=== PATIENT | female | born 1940 | race Caucasian/White ===

== ENCOUNTER 2019-12-14 14:02 | Inpatient (IN) | payer MEDICARE, OTHER, SELFPAY ==
[2019-12-14 14:28] VITALS: BP 129/77; PULSE 63; RESP 16; TEMP 36.3; O2SAT 96; BMI 20.4
[2019-12-14 16:28] VITALS: BMI 20.4
[2019-12-14 19:01] VITALS: RESP 16; O2SAT 99
[2019-12-14 20:37] VITALS: BP 136/64; PULSE 68; RESP 18; TEMP 36.9; O2SAT 100
[2019-12-14] MEDS: Senna/Docusate Sodium 1 Tablet 2 TABLET PO (20:44)
[2019-12-14] MEDS: APIXABAN 2.5 MG TABLET PO (20:44)
[2019-12-14] MEDS: oxyCODONE 5 MG Tablet 2.5 MG PO (20:44)
[2019-12-14] MEDS: Magnesium Hydroxide 30 ML UDC PO (21:57)
[2019-12-15] MEDS: oxyCODONE 5 MG Tablet 2.5 MG PO ×4 (02:03→17:57)
[2019-12-15 05:38] LABS: Absolute Lymphocyte Count 1.46 X10^3/uL (0.83-4.51); Absolute Neutrophil Count 5.1 X10^3/uL (2.0-7.7); Basophil# 0.02 X10^3/uL; Basophil% 0.3 % (0-1); Eosinophil# 0.14 X10^3/uL; Eosinophils% 1.9 % (0-5); Hematocrit 30.4 % (37-47); Hemoglobin 9.8 g/dL (12.0-15.0); Lymphocyte # 1.46 X10^3/ul (4.0); Lymphocyte % 19.6 % (19-41); Mean Corp Hgb Conc 32.2 g/dL (32-36); Mean Corpuscular Volume 99.3 fL (81-99); Mean Platelet Vol. 9.9 fl (6.2-12.0); Monocyte# 0.73 X10^3/uL; Monocyte% 9.8 % (0-10); NRBC Flagged by Analyzer 0 % (0-5); Neutrophil # 5.08 X10^3/uL (2.7-7.7); Platelet Count 193 K/mm3 (150-450); RBC Distribution Width CV 13.1 % (11.6-14.6); RBC Distribution Width SD 47.6 fl (35.1-43.9); Red Blood Count 3.06 M/mm3 (4.2-5.4); White Blood Count 7.5 K/mm3 (4.4-11.0)
[2019-12-15] MEDS: Levothyroxine 100 MCG Tablet PO (06:00)
[2019-12-15 06:03] LABS: ALB/GLOB Ratio 0.9 RATIO (0.9-2.4); AST(SGOT) 17 U/L (15-37); Alanine Aminotransfer ALT/SGPT 13 U/L (13-56); Alkaline Phosphatase 52 U/L (45-117); Anion Gap 7 (5-15); BUN 26 mg/dL (7-18); BUN/Creat Ratio 27.1 RATIO (10-20); Calcium,Total 8.7 mg/dL (8.5-10.1); Chloride 109 mmol/L (98-107); Creatinine, Serum 0.96 mg/dL (0.55-1.02); EST Glomerular Filtration Rate 59 mL/min (>60); Est Glom Filt Rate - Afr Amer 72 mL/min (>60); Estimated Creatinine Clearance 34.68 ml/min; Globulin 3.3 g/dL (2.2-4.2); Glucose 100 mg/dL (74-106); Magnesium 1.6 mg/dL (1.6-2.6); Phosphorus 2.6 mg/dL (2.5-4.9); Potassium 3.7 mmol/L (3.5-5.1); Protein, Total 6.3 g/dL (6.4-8.2); Sodium Level 144 mmol/L (136-145)
[2019-12-15] MEDS: Acetaminophen 325 MG Tablet 650 MG PO ×2 (06:30→14:37)
[2019-12-15 06:50] LABS: PTHIN 58.4 pg/mL (18.4-80.1)
[2019-12-15 07:02] VITALS: O2SAT 98
[2019-12-15 07:28] VITALS: BP 133/58; PULSE 71; RESP 12; TEMP 36.7; O2SAT 97
[2019-12-15 10:35] VITALS: PULSE 70
[2019-12-15] MEDS: Pantoprazole Sodium 40 MG Tablet PO (10:35)
[2019-12-15] MEDS: Metoprolol(XL)Succ 25 MG Tablet 12.5 MG PO (10:35)
[2019-12-15] MEDS: Lidocaine 5% Patch 1 PATCH TOPICAL (10:37)
[2019-12-15] MEDS: Senna/Docusate Sodium 1 Tablet 2 TABLET PO ×2 (10:39→20:36)
[2019-12-15] MEDS: APIXABAN 2.5 MG TABLET PO ×2 (10:40→20:36)
--- NOTE | 2019-12-15 11:34 | PCM.HP.STD ---
Problem List (1) Closed pelvic fracture Status: Acute Qualifiers: Encounter type: subsequent encounter Comment: Left pubic rami due to a fall (2) Closed left clavicular fracture Status: Acute Qualifiers: Encounter type: subsequent encounter Comment: due to a fall (3) Abdominal bruit Status: Chronic (4) Paroxysmal atrial fibrillation Status: Chronic (5) Chronic anticoagulation Status: Chronic Comment: On apixaban (6) History of right breast cancer Status: Chronic Comment: She had a right radical mastectomy in 1974 (7) Status post right mastectomy Status: Chronic Comment: 1974 (8) Diverticulosis Status: Chronic (9) History of endometrial cancer Status: Chronic (10) History of hysterectomy for cancer Status: Acute Comment: Hysterectomy in 2005 (11) Gastritis Status: Chronic (12) Hyperlipidemia Status: Chronic (13) Hypothyroidism Status: Chronic (14) Hepatic cyst Status: Chronic (15) Chronic low back pain Status: Chronic (16) Mitral regurgitation Status: Chronic Qualifiers: Cardiac valve disease etiology: nonrheumatic Qualified Code(s): I34.0 - Nonrheumatic mitral (valve) insufficiency (17) Overactive bladder Status: Chronic (18) GERD with esophagitis Status: Chronic (19) B12 deficiency Status: Acute (20) Vitamin D deficiency Status: Chronic (21) Disturbance of memory Status: Chronic Comment: over the past year (2019) (22) Macrocytic anemia Status: Acute History of Present Illness Date of Admission: 12/14/19 Chief Complaint: Debility secondary to recent traumatic left clavicle and left pubic rami fractures Shanthi Roy is a 79 year old F with a past medical history of hypertension, hypothyroidism, paroxysmal atrial fibrillation, diverticulosis, remote breast cancer with mastectomy in 1974, endometrial cancer with hysterectomy in 2005, gastritis, hyperlipidemia, hepatic cyst, chronic low back pain, mitral regurgitation, GERD with esophagitis, overactive bladder, B12 deficiency, vitamin D deficiency, abdominal bruit and recent fracture of the left clavicle and left superior and inferior pubic rami secondary to a fall from a wall she was trying to sit on who was admitted to the IPRU at [facility] on 12/14/19 with debility due to recent fractures for 3 hours of therapy daily to restore her to her prior level of independence. Prior to the recent fall she was independent with ADL's, walking without an AD and driving. She lives alone and prepares her own meals. Her family has noticed that she has been getting more forgetful over the past year. Her about 1 year ago and he had dementia. She tells me that she took care of him at home and she misses him a lot. She also tells me that she is sleeping well and has been active. She is a golfer and she enjoys gardening. She does not recognize that she has any difficulty with her memory. She tells me that she is not depressed and she has her cats at home for company. She does not know if she has ever had a BMD test. Her PCP is Dr. Ang in [place] and she does not recall the doctor's first name. She is not on medication for osteoporosis. She does take a vitamin D supplement. Past Medical History Past Medical History (Chronic Problems): Chronic Problems (Last Reviewed 12/15/19 @ 12:[address] Pooja Alvarez DO) Abdominal bruit (Chronic) Paroxysmal atrial fibrillation (Chronic) Chronic anticoagulation (Chronic) On apixaban History of right breast cancer (Chronic) She had a right radical mastectomy in 1974 Status post right mastectomy (Chronic) 1974 Diverticulosis (Chronic) History of endometrial cancer (Chronic) Gastritis (Chronic) Hyperlipidemia (Chronic) Hypothyroidism (Chronic) Hepatic cyst (Chronic) Chronic low back pain (Chronic) Mitral regurgitation (Chronic) Overactive bladder (Chronic) GERD with esophagitis (Chronic) Vitamin D deficiency (Chronic) Disturbance of memory (Chronic) over the past year (2019) Medical History: Medical History (Last Reviewed 12/15/19 @ 12:[address] Pooja Alvarez DO) Cataract H26.9 Liver cyst K76.89 Low back pain M54.5 Mitral regurgitation I34.0 Osteoporosis M81.0 Overactive bladder N32.81 Plantar fasciitis M72.2 Reflux esophagitis K21.0 Stress F43.9 Vitamin B 12 deficiency E53.8 Vitamin D deficiency E55.9 Allergies ciprofloxacin Allergy (Unknown, Verified 12/14/19 15:23) Itching nitrofurantoin [From Macrobid] Allergy (Unknown, Verified 12/14/19 15:23) Itching sulfamethoxazole [From Bactrim] Allergy (Verified 12/14/19 15:23) Itching trimethoprim [From Bactrim] Allergy (Verified 12/14/19 15:23) Itching Home Medications: Ambulatory Orders Medication Instructions Recorded Apixaban [Eliquis] 2.5 mg PO BID 12/14/19 Cholecalciferol (VIT D3) [Vitamin 50,000 units PO QWEEK 12/14/19 D3] Diphenoxylate HCl/Atropine 1 tab PO DAILY 12/14/19 [Lomotil 2.5-0.025 mg Tablet] Levothyroxine [Synthroid] 100 mcg PO DAILY 12/14/19 Lidocaine 1 patch TRANSDERM. DAILY 12/14/19 Mecobalamin [B12 Active] 1,000 mcg PO QODAY 12/14/19 Metoprolol Succinate [Toprol Xl] 12.5 mg PO DAILY 12/14/19 Omeprazole 40 mg PO DAILY 12/14/19 Oxycodone [Oxyir] 0.5 tab PO Q4H PRN PRN 12/14/19 Potassium Chloride 10 meq PO DAILY 12/14/19 Surgical History: Surgical History (Last Reviewed 12/15/19 @ 12:[address] 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 Denies: Chills, Fever, Malaise, Weight Change Eyes: Denies: Blurred vision HEENT: Denies: Difficulty Swallowing, Hard of Hearing, Head Aches, Nasal Congestion, Sinus Congestion, Sinus Drainage, Sore Throat Cardiovascular: Denies: Chest Pain, Edema, Light Headedness, Palpitations, Syncope Respiratory: Denies: Cough, Hemoptysis, Pleuritic Pain, Shortness of Breath, Shortness of breath at rest, Sputum production Gastrointestinal: Reports: Constipation - since she has been in the hospital...more likely than not due to narcotics for pain control. Denies: Abdominal Pain, Diarrhea, Nausea, Vomiting Genitourinary: Denies: Dysuria Musculoskeletal: Denies: Joint Pain, Joint Tenderness Skin: Denies: Jaundice, Rash, Wounds Neurological: Reports: Confusion - not so much confusion but poor short term memory. Denies: Balance problems, Change in Speech, Slurred speech, Focal weakness, Numbness, Tingling, Tremor, Seizures Psychiatric: Denies: Anxiety, Depression, Homicidal Ideations, Suicidal Ideations Endocrine: Denies: Change in Body Habitus Hematologic/ Lymphatic: Denies: Easy Bruising, Easy Bleeding, Hx of blood clot VTE Information - Inpt Only VTE Present on Admission: No VTE Mechan Device Prophylaxis: Knee High AXEL Hose Reason prophylaxis not ordered:: Treatment Not Indicated - she is on full dose Apixaban for PAF Patient Problems: Active and Suspected Problems (Last Reviewed 12/15/19 @ 12:[address] Pooja Alvarez, DO) Closed pelvic fracture (Acute) Left pubic rami due to a fall Closed left clavicular fracture (Acute) due to a fall History of hysterectomy for cancer (Acute) Hysterectomy in 2005 B12 deficiency (Acute) Macrocytic anemia (Acute) - Physical Exam Vitals/I&O's: Vital Signs Temp Pulse Resp BP Pulse Ox 98.1 F 70 12 133/58 H 97 12/15/19 07:28 12/15/19 10:35 12/15/19 07:28 12/15/19 07:28 12/15/19 07:28 Oxygen Delivery Method Room Air Weight: 105 lb 6.095 oz Body Mass Index (BMI) 20.4 Intake and Output for Last 24 Hours 12/13/19 12/14/19 12/15/19 23:59 23:59 23:59 Intake Total 240 / 240 260 / 260 Output Total 200 / 200 300 / 300 Balance 40 / 40 -40 / -40 General: Alert, Oriented x3, Cooperative, No apparent distress, Well developed, - - She is forgetful....atiya with recent memory. She is sitting in the recliner and appears comfortable HEENT: Atraumatic, PERRLA, EOMI Oral: No Gingival or Mucosal Lesions/ Ulcerations, Dry Mucosa Neck: Supple, No JVD, Negative Carotid Bruits, Negative Hepatojugular Reflux, No Nodes, No Nuchal Rigidity, Trachea Midline, - - The carotids have brisk upstroke and excellent pulse volume with no bruits Lungs: Clear to auscultation, No rhonchi, No wheeze, No rales Cardiovascular: Regular rate, Regular Rhythm, Normal S1, Normal S2, No murmurs, No Ectopic Activity, No rub noted, No Gallop Abdomen: Bowel Sounds Present, Soft, Non Tender - except in the left groin, Non-Distended, No Hepato-splenomegaly, - - No guarding with palpation Extremities: No clubbing, No cyanosis, No edema, No Calf Tenderness, Peripheral Pulses Normal Skin: No rashes, No breakdown Musculoskeletal: No Muscle Wasting Neurological: Cranial nerves II-XII grossly intact, Motor Exam 5/5 strength throughout Psych/Mental Status: Normal Affect - she is very pleasant and easy to talk to., Appropriate Laboratory Results 12/15/19 05:25: WBC 7.5, RBC 3.06 L, Hgb 9.8 L, Hct 30.4 L, MCV 99.3 H, MCH 32.0, MCHC 32.2, RDW Std Deviation 47.6 H, RDW Coeff of Tati 13.1, Plt Count 193, MPV 9.9, Immature Gran % (Auto) 0.400, Neut % (Auto) 68.0, Lymph % (Auto) 19.6, Eagle % (Auto) 9.8, Eos % (Auto) 1.9, Baso % (Auto) 0.3, Absolute Neuts (auto) 5.1, Absolute Lymphs (auto) 1.46, Nucleated RBC % 0 12/15/19 05:25: Sodium 144, Potassium 3.7, Chloride 109 H, Carbon Dioxide 28.0, Anion Gap 7, BUN 26 H, Creatinine 0.96, Estim Creat Clear Calc 34.68, Est GFR (MDRD) Af Amer 72, Est GFR (MDRD) Non-Af 59 L, BUN/Creatinine Ratio 27.1 H, Glucose 100, Calcium 8.7, Phosphorus 2.6, Magnesium 1.6, Total Bilirubin 0.50, AST 17, ALT 13, Alkaline Phosphatase 52, Total Protein 6.3 L, Albumin 3.0 L, Globulin 3.3, Albumin/Globulin Ratio 0.9 12/15/19 05:25: PTH Intact 58.4 Current Medications Acetaminophen (Tylenol) 650 mg PO Q6H PRN PRN PRN Reason: Pain Score 1-1010 Last Admin: 12/15/19 06:30 Dose: 650 mg Documented by: Apixaban (Eliquis) 2.5 mg PO BID [facility] Last Admin: 12/15/19 10:40 Dose: 2.5 mg Documented by: Bisacodyl (Dulcolax) 10 mg RECTAL .PRN X 1 PRN PRN Reason: Constipation Ergocalciferol (Vitamin D) 50,000 unit PO QWEEK [facility] Stop: 03/24/20 08:01 Levothyroxine Sodium (Synthroid) 100 mcg PO DAILY@0600 [facility] Last Admin: 12/15/19 06:00 Dose: 100 mcg Documented by: Lidocaine (Lidoderm Patch) 1 patch TOPICAL DAILY [facility] Last Admin: 12/15/19 10:37 Dose: 1 patch Documented by: Magnesium Hydroxide (Milk Of Magnesia) 30 ml PO .PRN X 1 PRN PRN Reason: Constipation Last Admin: 12/14/19 21:57 Dose: 30 ml Documented by: Metoprolol Succinate (Toprol Xl (Beta Gabriella)) 12.5 mg PO DAILY [facility] Last Admin: 12/15/19 10:35 Dose: 12.5 mg Documented by: Oxycodone HCl (Oxyir) 2.5 mg PO Q4H PRN PRN PRN Reason: Pain 1-10 Last Admin: 12/15/19 06:31 Dose: 2.5 mg Documented by: Pantoprazole Sodium (Protonix) 40 mg PO DAILY [facility] Last Admin: 12/15/19 10:35 Dose: 40 mg Documented by: Potassium [facility]Dur[facility] Last Admin: 12/15/19 10:39 Dose: 10 meq Documented by: Senna/Docusate Sodium (Senokot-S, Marie-Colace) 2 tablet PO BID [facility] Last Admin: 12/15/19 10:39 Dose: 2 tablet Documented by: Assessment/Plan All Active Problems (Last Reviewed 12/15/19 @ 12:[address] Pooja Alvarez, DO) Closed pelvic fracture (Acute) Closed left clavicular fracture (Acute) History of hysterectomy for cancer (Acute) B12 deficiency (Acute) Macrocytic anemia (Acute) Impressions 1. Debility secondary to recent traumatic fracture of the left clavicle and left inferior and superior pubic rami after falling off a wall 2. Mild macrocytic anemia-acute versus chronic? 3. Paroxysmal atrial fibrillation 4. Chronic anticoagulation with apixaban 2.5 mg twice daily since she is greater than 78 years of age and weighs less than 60 kg. 5. Memory disturbance-etiology unclear at this time. Speech therapy will evaluate her for cognitive dysfunction. Depression must also be considered as etiology of her memory difficulty since her of 57 years approximately 1 year ago and she is living by herself. Will assess for depression. 6. Suspected osteoporosis-currently only on vitamin D supplementation Chronic medical problems including: Abdominal bruit/history of breast cancer status post radical mastectomy in 1974/history of endometrial cancer with hysterectomy in 2005/diverticulosis/gastritis/hyperlipidemia/hypothyroidism/hepatic cyst/chronic low back pain/nonrheumatic mitral regurgitation/overactive bladder/GERD with esophagitis/B12 deficiency/vitamin D deficiency-complicate care, management and prognosis. We will continue home medications. PLAN PT for gait stability -weightbearing as tolerated on the left lower extremity and nonweightbearing on the left upper extremity OT for ADL's ST for evaluation for short-term memory difficulties Analgesics as needed Bowel protocol Fall precautions Assess for Anxiety/Depression GI prophylaxis with pantoprazole DVT prophylaxis is unnecessary since the patient is fully anticoagulated with apixaban 2.5 mg p.o. twice daily for paroxysmal atrial fibrillation Follow up with Dr. Ang and orthopedics following DC from IP Rehab Start Miacalcin 1 spray per nostril daily for suspected osteoporosis and also to assist with acute pain from fracture Check a vitamin D level. PTH is within normal limits. Calcium is within normal limits. TSH was normal recently Check a B12 and Hemoccult stool. I suspect the anemia is due to recent blood loss from pelvic fractures. Obtain recent labs from her primary care physician and any report of a bone mineral density study She lost her approximately 1 year ago (they were 59 years) and the memory issues could be related to depression. I would rather treat for depression at this time and if no improvement refer her to neurology post DC to be evaluated for early dementia. Inpatient E&M: 57591 Init Hosp L3
--- NOTE | 2019-12-15 12:18 | PCM.RU.PYE ---
Admission Information Primary Diagnosis:: Debility secondary to recent traumatic left clavicle and left inferior and superior pubic rami fractures Status Changes from Prescreening?: No changes Identified Actual Problem List:: Falls, Pain, ALteration in Cmfrt, Cognitve Impr/Memory Loss - Short-term memory loss, Depression - Possibly. This could conceivably be the etiology of the short-term memory deficit. Patient's of almost 60 years last year., Bowel, Constipation, Mobility Impaired Potential Problem List:: DVT, Bleeding, Infection, UTI, Aspiration, Falls, Skin Integrity, Depression Risk of Complications DVT: AXEL Turner, - - The patient is on full dose apixaban for paroxysmal atrial fibrillation Bleeding: Monitor Lab Values, Nursing to Teach Precautions for anti-coagulation therapy., Wound, if applicable, to be assessed every shift., Stroke patients assessed for lethargy or change in status. Infection: Clinical Staff to Monitor for S/S of infection:, S/S of infection include fever, redness, warmth, etc. Urinary Tract Infection: Monitor for frequency, burning, discomfort, or incontinence., Nursing will obtain urine sample for urinalysis and C&S when ordered. Aspiration: Clinical staff will monitor for coughing, drooling, congestion., Speech will evaluate swallowing and dsyphasia., Nursing will monitor patient swallowing during meals. Falls: Patient will be evaluated for Fall Precautions, Patient will be placed on Fall Precautions as indicated per protocol. Skin Breakdown: Nursing will assess skin daily using assessment tool., Nursing will place on Skin Breakdown Precautions as indicated. Pain: Clinical staff will assess patient's pain level per protocol., Medications will be given, if needed, and the pain level reassessed., Other methods: Massage, distraction, decrease stimulus, etc. used PRN. Plan of Care Patient requires physician specializing in physical medicine and rehab oversight to provide close medical supervision of rehab issues including: Pain Management, Sleep Problems, Bowel and Bladder, Medical and co-morbidity Management, DVT prophylaxis, Rehabilitation Leadership, Coordination of treatment team Patient needs Physical Therapy: For a minimum of 1 hour, At least 5 out of 7 days Patient needs Physical Therapy to improve:: Mobility, Mobility, Mobility, Strengthening, Transfers, Stretching, ROM, Endurance, Stairs, Gait, Balance Patient needs Occupational Therapy: For a minimum of 1 hour, At least 5 out of 7 days Patient needs Occupational Therapy to improve ADL's incl.: Eating, Grooming, Bathing, Dressing, Toileting, Toilet transfers, Community Reintegration, Higher functioning activities, Household tasks, Adaptive Equipment, Splinting, Other activities as determined Patient requires speech therapy: For a minimum of 1 hour, At least 5 out of 7 days Patient requires speech therapy for: Swallowing, Cognition, Language Skills, Compensatory Strategies Patient requires 24/ Rehabilitation Nursing for: Pain Issues, Identifying and preventing risk factors, Monitoring and reporting current medical conditions, Assisting with ambulation, transfer, and all ADL's, Teaching patients about disease process and medications, Family teaching, Providing safe environment, Bowel and Bladder Issues, Skin integrity, Medication Management Patient needs Statistical Technician/ Case Management for: Discharge Planning, Arranging Home Equipment or Services, Family Interventions Patient needs Dietary and Nutrition Services for: Adequate Nutrition, Nutritional Supplements, Nutritional Education Goals Patient will remain: free from falls, or injury at time of discharge. Patient will perform bed mobility at: MOD I level of assist. Patient will complete transfers from bed to chair at: MOD I level of assist. Patient will ambulate: 100 feet, with MOD I assist, with LRD Patient will complete upper body dressing at: MOD I level of assist. Patient will complete lower body dressing at: MOD I level of assist. Patient will complete toileting at: MOD I level of assist. Patient will perform bathing at: MOD I level of assist. Patient will complete grooming at: MOD I level of assist. Patient will complete home management skills at: MOD I level of assist. Patient will achieve: 12 stairs, at MOD I assist Patient will have pain level of: of 3 or less Patient's skin will: remain intact, free from infection. Patient will receive: adequate nutrition. Discharge Planning Pt Prognosis for Sig. Practical Improv. w/in Reasonable Time: Good Estimated Length of stay (days): 14 Anticipated D/C Destination: Home with Home Health - possibly home with family until she is adequately able to care for herself
[2019-12-15 19:44] VITALS: BP 115/60; PULSE 70; RESP 16; TEMP 36.9; O2SAT 97
--- NOTE | 2019-12-15 20:29 | NURSING ---
Pt set off alarms and found standing at side of bed. Staffing assisted pt with toileting needs and repositioned into bed.
[2019-12-15 22:00] VITALS: O2SAT 97
[2019-12-16] MEDS: Levothyroxine 100 MCG Tablet PO (06:45)
[2019-12-16] MEDS: oxyCODONE 5 MG Tablet 2.5 MG PO ×4 (06:47→21:23)
[2019-12-16 07:46] VITALS: BP 137/62; PULSE 64; RESP 18; TEMP 36.9; O2SAT 96
[2019-12-16 07:56] VITALS: BP 137/62; PULSE 64
[2019-12-16] MEDS: Metoprolol(XL)Succ 25 MG Tablet 12.5 MG PO (07:56)
[2019-12-16] MEDS: APIXABAN 2.5 MG TABLET PO ×2 (07:57→21:25)
[2019-12-16] MEDS: Pantoprazole Sodium 40 MG Tablet PO (07:57)
[2019-12-16] MEDS: Lidocaine 5% Patch 1 PATCH TOPICAL (07:57)
[2019-12-16] MEDS: Senna/Docusate Sodium 1 Tablet 2 TABLET PO ×2 (07:57→21:25)
[2019-12-16] MEDS: Calcitonin-Salmon 1 SPRAY SPRAY NARES (09:35)
--- NOTE | 2019-12-16 21:30 | NURSING ---
pt assisted to bsc at this time. pt non-compliant with sling and pulls L arm out of sling and under swathe to move self. pt educated on the need to keep arm in sling. pt states she understands but continues to attempt to use L arm out of sling. Swathe applied tighter when reapplied after hs bath. pt now compliant with the swathe tighter. will continue the need to tighten swathe and continue education.
[2019-12-16 22:00] VITALS: BP 120/75; PULSE 79; RESP 18; TEMP 36.4; O2SAT 98
[2019-12-17] MEDS: oxyCODONE 5 MG Tablet 2.5 MG PO ×3 (03:41→14:20)
[2019-12-17] MEDS: Acetaminophen 325 MG Tablet 650 MG PO ×2 (03:41→14:20)
[2019-12-17] MEDS: Levothyroxine 100 MCG Tablet PO (06:49)
[2019-12-17 07:24] VITALS: O2SAT 98
[2019-12-17] MEDS: Calcitonin-Salmon 1 SPRAY SPRAY NARES (08:09)
[2019-12-17] MEDS: Lidocaine 5% Patch 1 PATCH TOPICAL (08:10)
[2019-12-17] MEDS: APIXABAN 2.5 MG TABLET PO ×2 (08:11→21:31)
[2019-12-17 08:12] VITALS: PULSE 66
[2019-12-17] MEDS: Senna/Docusate Sodium 1 Tablet 2 TABLET PO ×2 (08:12→21:31)
[2019-12-17] MEDS: Pantoprazole Sodium 40 MG Tablet PO (08:12)
[2019-12-17] MEDS: Metoprolol(XL)Succ 25 MG Tablet 12.5 MG PO (08:12)
[2019-12-17 08:20] VITALS: BP 106/44; PULSE 66; RESP 16; TEMP 36.7; O2SAT 98
[2019-12-17 19:24] VITALS: BP 94/48; PULSE 68; RESP 16; TEMP 36.9; O2SAT 96
--- NOTE | 2019-12-17 22:45 | NURSING ---
Pt noted to have left arm out of sling. Left arm placed properly in sling, with swathe adjusted. Pt educated on the need to wear sling/swathe properly to facilitate healing. Pt states she understands, but attempts to use Left arm anyway. Will continue to monitor and assess.
[2019-12-18] MEDS: Acetaminophen 325 MG Tablet 650 MG PO (02:18)
[2019-12-18] MEDS: Levothyroxine 100 MCG Tablet PO (05:17)
[2019-12-18 07:44] VITALS: BP 101/51; PULSE 68; RESP 16; TEMP 36.8; O2SAT 95
[2019-12-18] MEDS: Pantoprazole Sodium 40 MG Tablet PO (07:49)
[2019-12-18] MEDS: APIXABAN 2.5 MG TABLET PO ×2 (07:49→20:33)
[2019-12-18] MEDS: Lidocaine 5% Patch 1 PATCH TOPICAL (07:49)
[2019-12-18 07:50] VITALS: BP 101/51; PULSE 68
[2019-12-18] MEDS: Metoprolol(XL)Succ 25 MG Tablet 12.5 MG PO (07:50)
[2019-12-18] MEDS: Calcitonin-Salmon 1 SPRAY SPRAY NARES (08:26)
--- NOTE | 2019-12-18 09:00 | PN_ITS ---
Progress Note Kavya was seen on TEAM rounds. Her dtr Staci participated via phone Afebrile VSS Maintaining appropriate oxygen saturation on RA Oral intake is fair Discussed with nursing - no problems that need addressed Reviewed the PT/OT/ST notes Medication list reviewed. The pain in the left clavicle has improved with better immobilization of the left arm while doing therapy. Still having pain that she locates in the R lateral hip, atiya with walking/bearing weight. ST is working with her on memory. ST feels she is not safe driving due to poor STM. She is also very easily distracted. She needs to be frequently redirected. Alert, lying in bed, NAD Lungs - CTA Heart-regular rate and rhythm, no ectopy Abdomen-soft, nontender, nondistended, normal bowel sounds No peripheral edema Impressions 1. Debility due to recent fall resulting in fractures of the left clavicle and left superior and inferior rami. She is nonweightbearing on the left upper extremity and weightbearing as tolerated on the left lower extremity 2. Memory problems with poor short-term memory and easy distractibility 3. Macrocytic anemia with an increased RDW, increased BUN/creatinine ratio and Hemoccult positive stool -she has a history of radiation enteritis and also she is on chronic anticoagulation with apixaban for paroxysmal atrial fibrillation. 4. PAF 5. Chronic anticoagulation with apixaban 6. low normal B12 - < 300. Could she be deficient? Could this be contributing to the memory problems? 7. Suspected depression with inability to stay asleep longer than 5 to 6 hours, trouble with memory, decreased appetite with weight loss, lack of motivation to do the things that she likes to do 8. Hypomagnesemia -cannot tolerate mag oxide secondary to diarrhea. I discussed this with Staci and she is on board with getting a RX for Slow Mag at the [facility] retail pharmacy and starting this BID to see if it is better tolerated. Add Tylenol 1 g p.o. every 8 hours for increased pain control Check intrinsic factor antibody Continue to follow hemoglobin Continue PT/OT/ST Will need to discuss with Kavya and her family driving restrictions and referral to neurology for evaluation for possible dementia. Start a PO B12 supplement find out id she has had a CTB or MRI recently to better evaluate for memory loss. TSH recently normal STROKE Vital Signs/Narrative: Vital Signs Temp Pulse Resp BP Pulse Ox 12/18/19 07:50 68 101/51 L 12/18/19 07:44 98.2 F 68 16 101/51 L 95 Inpatient E&M: 24861 Subs Hosp L2
[2019-12-18 09:38] LABS: Vitamin B12 295 pg/mL (211-911); Vitamin D,25 Hydroxy 63.4 ng/mL
[2019-12-18] MEDS: oxyCODONE 5 MG Tablet 2.5 MG PO ×2 (12:05→20:30)
--- NOTE | 2019-12-18 12:40 | CASEMGMT ---
Social Work IDT met with patient and dtr via conference call for Team Meeting. Discussed patient's progress in therapy. Pt is min to mod assist for transfers, can stand pivot with daphne walker, and put on shoes with slipper sock over toe of shoe which provided more stability. Pt is min to mod assist for UE ADLS while seated, max assist with LE ADLs. It is painful for pt to stand and for that shoulder - changed sling for shoulder and helping with pain. Pt working on ST memory exercises, as pt forgets to drink walker, keep shoulder immobilized, etc. Dtr inquired about hiring [facility] as they have used [facility] prior. IDT agreed to coordinate services with them as pt will need help at home regardless of DC date. Once SW receives Medicare days, will notify pt and dtr. Explained Medicare benefit. Will ReTeam next week. Will continue to follow. REED SiuW
--- NOTE | 2019-12-18 15:37 | CHAPLAIN ---
Type of Pastoral Visit _x__ Initial Visit ___ Follow-up Visit ___ On-call Visit ___ General Patient Visit ___ Spiritual Assessment ___ Family Conference ___ Bereavement ___ Rapid Response ___ Code Blue ___ Other (describe below) Pastoral Care Referral From _x__ Patient ___ Family ___ Nurse ___ Physician ___ Gel Coat Sprayer ___ Building Tech _x__ Other (describe below) Sacrament/Intervention _x__ Active listening ___ Anointing ___ Islam ___ Bereavement ___ Communion _x__ Lore exploration ___ _x__ Life review _x__ Prayer ___ Reconciliation ___ Sacrament of Sick _x__ Supportive presence ___ Wedding ___ Other (describe below) Pastoral Comments visit is recommended by Olive Packer; patient is very welcoming of spiritual care and is talkative; pt speaks of her family, her lore background and her involvement with spiritism; pt is expressive about her deep lore in God; pt would like to be home and requests prayer to know when that can happen; pt has family close by here and in [place] where she lives normally
[2019-12-18 19:39] VITALS: BP 106/49; PULSE 65; RESP 16; TEMP 37.1; O2SAT 99
[2019-12-18] MEDS: Senna/Docusate Sodium 1 Tablet 2 TABLET PO (20:32)
[2019-12-19] MEDS: Levothyroxine 100 MCG Tablet PO (05:50)
[2019-12-19] MEDS: Acetaminophen 325 MG Tablet 650 MG PO (05:50)
[2019-12-19 06:05] LABS: Hematocrit 28.8 % (37-47); Hemoglobin 9.5 g/dL (12.0-15.0); Mean Corpuscular Hgb 32.5 pg (27.0-32.0); Mean Corpuscular Volume 98.6 fL (81-99); Mean Platelet Vol. 9.7 fl (6.2-12.0); Platelet Count 239 K/mm3 (150-450); RBC Distribution Width CV 12.8 % (11.6-14.6); RBC Distribution Width SD 46.2 fl (35.1-43.9); Red Blood Count 2.92 M/mm3 (4.2-5.4); White Blood Count 6.9 K/mm3 (4.4-11.0)
[2019-12-19 06:29] LABS: Anion Gap 6 (5-15); BUN 22 mg/dL (7-18); BUN/Creat Ratio 23.7 RATIO (10-20); Calcium,Total 9.4 mg/dL (8.5-10.1); Chloride 106 mmol/L (98-107); Creatinine, Serum 0.93 mg/dL (0.55-1.02); EST Glomerular Filtration Rate 62 mL/min (>60); Est Glom Filt Rate - Afr Amer 75 mL/min (>60); Glucose 90 mg/dL (74-106); Magnesium 1.3 mg/dL (1.6-2.6); Phosphorus 3.4 mg/dL (2.5-4.9); Potassium 3.9 mmol/L (3.5-5.1); Sodium Level 139 mmol/L (136-145)
[2019-12-19 06:48] VITALS: BP 132/74; PULSE 63; RESP 16; TEMP 36.7; O2SAT 94
[2019-12-19] MEDS: Cyanocobalamin 500 MCG Tablet 1000 MCG PO (08:00)
[2019-12-19] MEDS: APIXABAN 2.5 MG TABLET PO ×2 (08:00→21:03)
[2019-12-19] MEDS: Lidocaine 5% Patch 1 PATCH TOPICAL (08:00)
[2019-12-19] MEDS: Senna/Docusate Sodium 1 Tablet 2 TABLET PO ×2 (08:02→21:02)
[2019-12-19] MEDS: Pantoprazole Sodium 40 MG Tablet PO (08:02)
[2019-12-19 08:03] VITALS: PULSE 61
[2019-12-19] MEDS: Metoprolol(XL)Succ 25 MG Tablet 12.5 MG PO (08:03)
[2019-12-19] MEDS: Calcitonin-Salmon 1 SPRAY SPRAY NARES (10:42)
--- NOTE | 2019-12-19 10:56 | PCM.PN.BLA ---
Progress Note Afebrile since admission Blood pressure is well controlled She is maintaining appropriate oxygen saturation on room air with no tachypnea Oral intake is poor All lab was personally reviewed. The hemoglobin is stable at 9.5. White blood cell count and platelets are within normal limits. Sodium, potassium, carbon dioxide are within normal limits. The BUN is 22 and the creatinine is 0.93 and stable. Magnesium is low at 1.3. Intrinsic factor is pending. alert, NAD Lungs - CTA HRRR abd - soft, NT no peripheral edema Impressions 1. Debility secondary to recent fall with pelvic fracture and fracture of the left clavicle 2. Memory difficulties with poor short-term memory and easy distractibility. She needs to be evaluated by a neurologist as an OP for possible dementia BUT, I feel we should consider tx for depression first and also see if the B12 supplementation helps with memory 3. Hypomagnesemia 4. PAF 5. anemia with heme + stool RX for Slow MAg sent to [facility] retail pharm 4 GM of IV mag today. recheck the mag in a few days. Would really hesitate to use Amiloride to help conserve magnesium because she has poor oral intake anyway. She has had diArrhea in the past with Mag ox....hopefully she will tolerate the slow MAG better monitor the HH serially Continue Apixaban for stroke prophylaxis in this pt with PAF. Will discuss with family whether she has had a EGD or colonoscopy recently. She denies nausea/vomiting/epigastric pain. She denies any history of peptic ulcer disease. I elected not to start a PPI or H2 raya in an asymptomatic patient with an unknown etiology of Hemoccult positive stool......would prefer to work this up further as an OP STROKE Vital Signs/Narrative: Vital Signs Pulse 12/19/19 08:03 61 Inpatient E&M: 13893 Subs Hosp L2
[2019-12-19] MEDS: Magnesium Sulfate 4gm/100mL 4 GM/100 ML IV.SOLN. IV (14:42)
[2019-12-19] MEDS: Acetaminophen 500 MG Tablet 1000 MG PO ×2 (14:44→21:03)
[2019-12-19] MEDS: oxyCODONE 5 MG Tablet 2.5 MG PO (15:39)
[2019-12-19 18:37] VITALS: BP 123/58; PULSE 65; RESP 16; TEMP 37; O2SAT 99
[2019-12-19] MEDS: MAGNESIUM CHLORIDE 71.5 MG PO (21:02)
[2019-12-19] MEDS: 0.9% Saline Lock 10 ML Syringe IV (21:12)
[2019-12-20] MEDS: Levothyroxine 100 MCG Tablet PO (05:54)
[2019-12-20] MEDS: Acetaminophen 500 MG Tablet 1000 MG PO ×3 (05:54→22:45)
[2019-12-20] MEDS: oxyCODONE 5 MG Tablet 2.5 MG PO ×2 (08:48→12:57)
[2019-12-20] MEDS: Cyanocobalamin 500 MCG Tablet 1000 MCG PO (08:50)
[2019-12-20] MEDS: APIXABAN 2.5 MG TABLET PO ×2 (08:50→22:43)
[2019-12-20] MEDS: Lidocaine 5% Patch 1 PATCH TOPICAL (08:50)
[2019-12-20] MEDS: MAGNESIUM CHLORIDE 71.5 MG PO ×2 (08:51→22:43)
[2019-12-20] MEDS: Senna/Docusate Sodium 1 Tablet 2 TABLET PO ×2 (08:51→22:42)
[2019-12-20] MEDS: Pantoprazole Sodium 40 MG Tablet PO (08:51)
[2019-12-20 08:52] VITALS: PULSE 80
[2019-12-20] MEDS: Metoprolol(XL)Succ 25 MG Tablet 12.5 MG PO (08:52)
[2019-12-20] MEDS: Calcitonin-Salmon 1 SPRAY SPRAY NARES (09:06)
[2019-12-20 10:00] VITALS: BP 132/58; PULSE 68; RESP 16; TEMP 36.7; O2SAT 94
[2019-12-20 19:37] VITALS: BP 100/62; PULSE 73; RESP 16; TEMP 36.6; O2SAT 96
[2019-12-20] MEDS: 0.9% Saline Lock 10 ML Syringe IV (22:58)
[2019-12-21] MEDS: oxyCODONE 5 MG Tablet 2.5 MG PO ×2 (02:14→07:42)
[2019-12-21] MEDS: Levothyroxine 100 MCG Tablet PO (05:42)
[2019-12-21] MEDS: Acetaminophen 500 MG Tablet 1000 MG PO ×3 (05:43→21:29)
[2019-12-21 07:03] VITALS: BP 133/54; PULSE 61; RESP 16; TEMP 36.6; O2SAT 97
[2019-12-21 07:41] VITALS: PULSE 70
[2019-12-21] MEDS: Metoprolol(XL)Succ 25 MG Tablet 12.5 MG PO (07:41)
[2019-12-21] MEDS: Pantoprazole Sodium 40 MG Tablet PO (07:42)
[2019-12-21] MEDS: APIXABAN 2.5 MG TABLET PO ×2 (07:42→21:34)
[2019-12-21] MEDS: Cyanocobalamin 500 MCG Tablet 1000 MCG PO (07:42)
[2019-12-21] MEDS: Senna/Docusate Sodium 1 Tablet 2 TABLET PO ×2 (07:42→21:30)
[2019-12-21] MEDS: Lidocaine 5% Patch 1 PATCH TOPICAL (07:43)
[2019-12-21] MEDS: MAGNESIUM CHLORIDE 71.5 MG PO ×2 (07:44→21:30)
[2019-12-21] MEDS: Calcitonin-Salmon 1 SPRAY SPRAY NARES (11:08)
--- NOTE | 2019-12-21 11:27 | PCM.PN.BLA ---
Progress Note Afebrile Vital signs stable Maintaining appropriate oxygen saturation on room air Oral intake is still only fair except when encouraged to increase the fluid intake. She tells me today that she has lost wt over the past yearand her appetite is decreased. She only sleeps 5-6 hours a night. She is frequently tired and has little motivation. She is unaware that her short term memory is poor.......her family has been noticing this for the past year. 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 She is on chronic anticoagulation for AF (occurred with hypomagnesemia). Her pain is doing much better with addition of the TID Tylenol to drug regimen. She was able to stand for several minutes to put her makeup on and she has her left arm out of the sling today is moving it around without c/o pain. Still having pain left lateral hip area. Intrinsic factor antibody is still pending. Alert, no apparent distress, sitting in the recliner eating her lunch Lungs-clear to auscultation with excellent air exchange Heart-regular rate and rhythm, no gallop Abdomen-flat, soft, nontender, denies diarrhea and she is on the SLO MAG now BID. non peripheral edema, no calf tenderness Impressions 1. Debility secondary to traumatic left clavicle fracture and left inferior and superior pubic rami due to a fall 2. Suspected osteoporosis-on Miacalcin, calcium and vitamin D supplementation currently. Will need a DEXA as an outpatient 3. Short-term memory difficulties x1 year. I suspect this may be multifactorial. The B12 is low at 295 and she misses her who 1 year ago and she has decreased appetite, wt loss, fatigue, decreased motivation...consistent with depression. 4. anemia with heme + stool. + hx of radiation enteritis. Denies abd pain No N/V. She is also on Apixaban chronically for PAF. 5. Hypomagnesemia - on SLO MAG BID now BMP, mag and HH in the AM Continue the B12 PO but give 1,000 mg B12 SQ for the next 5 days. This may also improve her balance also. STROKE Vital Signs/Narrative: Vital Signs Pulse 12/21/19 07:41 70 Inpatient E&M: [id number] Subs Hosp L2
[2019-12-21 15:41] LABS: Ferritin 213 ng/mL (8-252); Iron 60 ug/dL (50-170); Iron Binding Capacity,Total 428 ug/dL (250-450)
--- NOTE | 2019-12-21 15:44 | CHAPLAIN ---
Type of Pastoral Visit ___ Initial Visit _x__ Follow-up Visit ___ On-call Visit ___ General Patient Visit ___ Spiritual Assessment ___ Family Conference ___ Bereavement ___ Rapid Response ___ Code Blue ___ Other (describe below) Pastoral Care Referral From _x__ Patient ___ Family ___ Nurse ___ Physician ___ Engine Turner ___ Splicer Helper ___ Other (describe below) Sacrament/Intervention _x__ Active listening ___ Anointing ___ Voodoo ___ Bereavement ___ Communion _x__ Lore exploration ___ _x__ Life review _x__ Prayer ___ Reconciliation ___ Sacrament of Sick _x__ Supportive presence ___ Wedding ___ Other (describe below) Pastoral Comments patient is sitting up in chair and dressed; this certified real estate appraiser makes comments to this observation but pt states that today she has to admit I'm feeling depressed; asked to describe that, she refers to desire to go home and yet how is that going to work and how will I have the help I need?; discussion on what future holds being focusing on small portions of the next part of future, how she has come through changes in the past, and relying on her lore in God which she reports is very strong; pt states that certified real estate appraiser, you came just when I needed this and God must have sent you; pt gives further life story and also asks questions of this certified real estate appraiser;
[2019-12-21 19:34] VITALS: BP 154/82; PULSE 72; RESP 16; TEMP 36.7; O2SAT 96
[2019-12-21] MEDS: Mirtazapine 15 MG Tablet 7.5 MG PO (21:33)
[2019-12-22] MEDS: 0.9% Saline Lock 10 ML Syringe IV (00:28)
[2019-12-22 00:43] LABS: Intrinsic Factor Ab 1.2 AU/mL (0.0-1.1)
[2019-12-22 05:56] LABS: Hematocrit 29.2 % (37-47); Hemoglobin 9.3 g/dL (12.0-15.0)
[2019-12-22] MEDS: Acetaminophen 500 MG Tablet 1000 MG PO ×3 (06:46→20:07)
[2019-12-22] MEDS: Levothyroxine 100 MCG Tablet PO (06:47)
[2019-12-22 08:05] VITALS: BP 133/71; PULSE 60
[2019-12-22] MEDS: Metoprolol(XL)Succ 25 MG Tablet 12.5 MG PO (08:05)
[2019-12-22] MEDS: Pantoprazole Sodium 40 MG Tablet PO (08:05)
[2019-12-22] MEDS: Cyanocobalamin 500 MCG Tablet 1000 MCG PO (08:05)
[2019-12-22] MEDS: APIXABAN 2.5 MG TABLET PO ×2 (08:05→20:06)
[2019-12-22] MEDS: MAGNESIUM CHLORIDE 71.5 MG PO ×2 (08:05→20:07)
[2019-12-22 08:47] VITALS: BP 133/71; PULSE 60; RESP 20; TEMP 36.7; O2SAT 97
[2019-12-22] MEDS: oxyCODONE 5 MG Tablet 2.5 MG PO (08:57)
[2019-12-22 09:03] LABS: Anion Gap 6 (5-15); BUN 25 mg/dL (7-18); BUN/Creat Ratio 29.4 RATIO (10-20); Calcium,Total 9.2 mg/dL (8.5-10.1); Chloride 111 mmol/L (98-107); Creatinine, Serum 0.85 mg/dL (0.55-1.02); EST Glomerular Filtration Rate 68 mL/min (>60); Est Glom Filt Rate - Afr Amer 82 mL/min (>60); Estimated Creatinine Clearance 38.76 ml/min; Glucose 88 mg/dL (74-106); Magnesium 1.7 mg/dL (1.6-2.6); Potassium 4.4 mmol/L (3.5-5.1); Sodium Level 143 mmol/L (136-145)
--- NOTE | 2019-12-22 09:12 | PCM.PN.BLA ---
Progress Note Afebrile Vital signs stable Maintaining appropriate oxygen saturation on room air without tachypnea Fair oral intake-actually has improved over the preceding few days. All lab was personally reviewed. Hemoglobin is 9.3 today, down from 9.8 on 12/15/2019 however this may be secondary to hydration. BUN remains elevated at 25 but the creatinine has improved and is 0.85 today. Magnesium is 1.7. Serum iron is normal at 60 and the TIBC is high normal at 428. Iron saturation is low at 14% and the ferritin is 213. The intrinsic factor antibody is high at 1.2. Homocystine is high at 16. MMA is pending. She was started on Remeron at at bedtime for depression last evening and she was started on subcutaneous vitamin B12 for 3 days starting 12/21/2019. She has not tried the compounded pain cream yet because of a SNAFU with phar and putting in the order for the cream.....I can not enter it from my side, only the pharmacist can enter the order at the present time. She tells me that she slept better last night with the Remeron. She feels a little more tired today and she was sleeping both times I went into her room today but, she has been able to do her therapy and she arouses easily. pleasant and talkative no focal neurologic deficits The OT brought to my attention that she has poor toe nail care and has been unable to do this herself. She has not seen a hairspring fabrication supervisor for some and is unable to remember the name. She has onychomycosis of all her toenails. She has dry skin over the feet and the distal LE's BL. There are no openings in the skin. Impressions 1. debility due to fall with fracture of the pelvis and the left clavicle 2. hypomagnesemia - Mag is normal today and she is tolerating the Slo Mag without diarrhea 3. memory problems with poor STM and easy distractibility...I think this is likely multifactorial. W/U is in progress for B12 deficiency, She has been started on Remeron for suspected depression and to stimulate appetite. ST is working with her on memory exercises and strategies to improve recall. 4. Anemia - Hgb has decreased a little but we have been encouraging her to increase fluids and this may be due to better hydration 5. Toenail onychomycosis of all nails - consult Dr. Napier for nail care and then she can follow up with him post DC Recheck magnesium, BMP and H&H on Wednesday TEAM meeting on Wednesday....will discuss DC further with her dtr at that time. Continue Remeron 7.5 mg p.o. nightly STROKE Vital Signs/Narrative: Vital Signs Temp Pulse Resp BP Pulse Ox 12/22/19 08:47 98.1 F 60 20 H 133/71 H 97 12/22/19 08:05 60 133/71 H Inpatient E&M: 13130 Subs Hosp L2
[2019-12-22] MEDS: Cyanocobalamin (B12) 1,000 MCG/ML Vial 1000 MCG SC (09:47)
[2019-12-22] MEDS: Calcitonin-Salmon 1 SPRAY SPRAY NARES (09:48)
[2019-12-22] MEDS: Mirtazapine 15 MG Tablet 7.5 MG PO (20:06)
[2019-12-22 20:11] VITALS: BP 109/57; PULSE 67; RESP 16; TEMP 36.8; O2SAT 97
[2019-12-23] MEDS: Levothyroxine 100 MCG Tablet PO (05:08)
[2019-12-23] MEDS: oxyCODONE 5 MG Tablet 2.5 MG PO ×3 (05:08→18:22)
[2019-12-23] MEDS: Acetaminophen 500 MG Tablet 1000 MG PO ×3 (05:08→20:58)
[2019-12-23 06:45] LABS: Hematocrit 30.2 % (37-47); Hemoglobin 9.5 g/dL (12.0-15.0); Mean Corp Hgb Conc 31.5 g/dL (32-36); Mean Corpuscular Hgb 31.8 pg (27.0-32.0); Mean Platelet Vol. 9.4 fl (6.2-12.0); Platelet Count 349 K/mm3 (150-450); RBC Distribution Width CV 12.9 % (11.6-14.6); RBC Distribution Width SD 47.9 fl (35.1-43.9); Red Blood Count 2.99 M/mm3 (4.2-5.4); White Blood Count 5.5 K/mm3 (4.4-11.0)
[2019-12-23 07:00] VITALS: BP 120/55; PULSE 58; RESP 18; TEMP 36.6; O2SAT 98
[2019-12-23] MEDS: APIXABAN 2.5 MG TABLET PO ×2 (09:12→20:58)
[2019-12-23] MEDS: Cyanocobalamin 500 MCG Tablet 1000 MCG PO (09:12)
[2019-12-23] MEDS: Lidocaine 5% Patch 1 PATCH TOPICAL (09:13)
[2019-12-23] MEDS: Pantoprazole Sodium 40 MG Tablet PO (09:16)
[2019-12-23 09:17] VITALS: PULSE 79
[2019-12-23] MEDS: Metoprolol(XL)Succ 25 MG Tablet 12.5 MG PO (09:17)
[2019-12-23] MEDS: MAGNESIUM CHLORIDE 71.5 MG PO ×2 (09:18→20:59)
[2019-12-23] MEDS: Calcitonin-Salmon 1 SPRAY SPRAY NARES (09:25)
[2019-12-23] MEDS: Cyanocobalamin (B12) 1,000 MCG/ML Vial 1000 MCG SC (09:26)
[2019-12-23] MEDS: Senna/Docusate Sodium 1 Tablet 2 TABLET PO ×2 (09:30→20:58)
--- NOTE | 2019-12-23 09:40 | PN_ITS ---
Patient Problems: Active and Suspected Problems (Last Reviewed 12/15/19 @ 12:[address] Pooja Alvarez, DO) Closed pelvic fracture (Acute) Left pubic rami due to a fall Closed left clavicular fracture (Acute) due to a fall History of hysterectomy for cancer (Acute) Hysterectomy in 2006 B12 deficiency (Acute) Macrocytic anemia (Acute) Subjective: Patient was seen today for foot care. She has chronic fungal and thickening of toenails. She relates she has seen a community planner in [place] for this in the past and she relates he spoke to her about a medication she could use to clear up the fungus. She does not recall the name nor who she saw, but thinks it was a couple of years ago. She is asking what she can put on them. Otherwise she has a callus on the right foot. She relates she does not have any other issues with her feet. - Physical Exam Vitals/I&O's: Vital Signs Temp Pulse Resp BP Pulse Ox 98.3 F 79 16 109/57 L 97 12/22/19 20:11 12/23/19 09:17 12/22/19 20:11 12/22/19 20:11 12/22/19 20:11 Oxygen Delivery Method Room Air Weight: 47.3 kg Body Mass Index (BMI) 20.4 Intake and Output for Last 24 Hours 12/21/19 12/22/19 12/23/19 23:59 23:59 23:59 Intake Total 940 / 940 480 / 480 Output Total 750 / 750 150 / 150 Balance 190 / 190 330 / 330 General: Alert, Oriented x3, Cooperative, No apparent distress Extremities: No cyanosis, Capillary Refill Less than 3 Seconds, No Calf Tenderness, - - Toenails 1-5 bilateral are thickened, dystrophic, elongated, yellow, crumbly, with subungual debris. HPK callus plantar medial 1st met head bilateral, right worse than left. There are no open lesions, no drainage, no cellulitis, no erythema, no blisters bilateral foot/ankle. Pedal pulsea intact, CFT < 2 seconds to all toes, and temperature normal to the foot bilateral. Sensation intact to light touch bilateral foot. There is lateral deviation of hallux bilateral, no m/s POP or pain on ROM to the foot/ankle. Musculoskeletal: No Tenderness to Palpation of Joints or Extremities - of the foot/ankle bilateral Psych/Mental Status: Appropriate Laboratory Results 12/23/19 06:15: WBC 5.5, RBC 2.99 L, Hgb 9.5 L, Hct 30.2 L, MCV 101.0 H, MCH 31.8, MCHC 31.5 L, RDW Std Deviation 47.9 H, RDW Coeff of Tati 12.9, Plt Count 349, MPV 9.4 Current Medications Acetaminophen (Tylenol) 1,000 mg PO Q8 [facility] Last Admin: 12/23/19 05:08 Dose: 1,000 mg Documented by: Apixaban (Eliquis) 2.5 mg PO BID [facility] Last Admin: 12/23/19 09:12 Dose: 2.5 mg Documented by: Bisacodyl (Dulcolax) 10 mg RECTAL .PRN X 1 PRN PRN Reason: Constipation Calcitonin Howard (Miacalcin Nasal Dresser) 1 spray NARES DAILY [facility] Last Admin: 12/23/19 09:25 Dose: 1 spray Documented by: Diclofenac Sodium 0.09 gm/Lidocaine 0.09 gm/ Baclofen 0. 06 gm/ CREAM BASE NO.40 2.76 gm gm TOPICAL TID PRN PRN PRN Reason: Pain Score 1-1010 Last Admin: 12/22/19 09:49 Dose: 1 gm Documented by: Cyanocobalamin (Vitamin B12) 1,000 mcg PO DAILY@0800 [facility] Last Admin: 12/23/19 09:12 Dose: 1,000 mcg Documented by: Cyanocobalamin (Vitamin B12) 1,000 mcg SC DAILY [facility] Stop: 12/25/19 10:01 Last Admin: 12/23/19 09:26 Dose: 1,000 mcg Documented by: Ergocalciferol (Vitamin D) 50,000 unit PO QWEEK [facility] Stop: 03/24/20 08:01 Last Admin: 12/17/19 08:11 Dose: 50,000 unit Documented by: Levothyroxine Sodium (Synthroid) 100 mcg PO DAILY@0600 [facility] Last Admin: 12/23/19 05:08 Dose: 100 mcg Documented by: Lidocaine (Lidoderm Patch) 1 patch TOPICAL DAILY [facility] Last Admin: 12/23/19 09:13 Dose: 1 patch Documented by: Magnesium Chloride (Slow-Mag) 71.5 mg PO BID [facility] Last Admin: 12/23/19 09:18 Dose: 71.5 mg Documented by: Magnesium Hydroxide (Milk Of Magnesia) 30 ml PO .PRN X 1 PRN PRN Reason: Constipation Last Admin: 12/14/19 21:57 Dose: 30 ml Documented by: Metoprolol Succinate (Toprol Xl (Beta Gabriella)) 12.5 mg PO DAILY [facility] Last Admin: 12/23/19 09:17 Dose: 12.5 mg Documented by: Mirtazapine (Remeron) 7.5 mg PO 2100 [facility] Last Admin: 12/22/19 20:06 Dose: 7.5 mg Documented by: Multi-Ingredient Cream (Eucerin) 1 applic TOPICAL QHS [facility]; Protocol Last Admin: 12/22/19 20:06 Dose: 1 applicatio Documented by: Nutritional Formula (Lactose Free) (Ensure Enlive) 120 ml PO 4X/DAY [facility] Last Admin: 12/23/19 09:12 Dose: 120 ml Documented by: Oxycodone HCl (Oxyir) 2.5 mg PO Q4H PRN PRN PRN Reason: Pain -05/18 Last Admin: 12/23/19 09:30 Dose: 2.5 mg Documented by: Pantoprazole Sodium (Protonix) 40 mg PO DAILY [facility] Last Admin: 12/23/19 09:16 Dose: 40 mg Documented by: Potassium Chloride (K-Dur) 10 meq PO DAILYCM [facility] Last Admin: 12/23/19 09:13 Dose: 10 meq Documented by: Senna/Docusate Sodium (Senokot-S, Marie-Colace) 2 tablet PO BID [facility] Last Admin: 12/23/19 09:30 Dose: 2 tablet Documented by: Sodium Chloride () 10 - 40 ml IV UD PRN PRN Reason: SALINE FLUSH Last Admin: 12/22/19 00:28 Dose: 10 ml Documented by: Medical Necessity - Tobacco Use Smoking Status: Never smoker Tobacco Use: Non-smoker Assessment/Plan All Active Problems (Last Reviewed 12/15/19 @ 12:[address] Pooja vance DO) Closed pelvic fracture (Acute) Closed left clavicular fracture (Acute) History of hysterectomy for cancer (Acute) B12 deficiency (Acute) Macrocytic anemia (Acute) Onychomycosis 1-5 bilateral toenails Hallux valgus w/ callus Patient's feet examined. Discussed findings, conditions and treatment options with patient. Today debrided 1-5 toenails bilateral using a nail nipper, removing bulk. Patient is asking about antifungal medication for toenails. Discussed possible topical antifungal medication, ciclopirox 8% solution once daily to toenails. Debrided callus using 15 blade. Reviewed foot care w/ patient. Patient can follow up at [facility] for further foot care in future. This was discussed with patient, all of her questions were answers. Thank you for consultation.
[2019-12-23 19:36] VITALS: BP 114/69; PULSE 76; RESP 16; TEMP 36.8; O2SAT 98
[2019-12-23] MEDS: Mirtazapine 15 MG Tablet 7.5 MG PO (21:00)
[2019-12-24] MEDS: Levothyroxine 100 MCG Tablet PO (05:29)
[2019-12-24] MEDS: oxyCODONE 5 MG Tablet 2.5 MG PO (05:29)
[2019-12-24] MEDS: Acetaminophen 500 MG Tablet 1000 MG PO ×3 (05:29→23:03)
[2019-12-24 06:09] LABS: Hematocrit 30.5 % (37-47); Hemoglobin 9.5 g/dL (12.0-15.0); Mean Corp Hgb Conc 31.1 g/dL (32-36); Mean Corpuscular Volume 102.7 fL (81-99); Mean Platelet Vol. 9.5 fl (6.2-12.0); Platelet Count 366 K/mm3 (150-450); RBC Distribution Width CV 12.8 % (11.6-14.6); Red Blood Count 2.97 M/mm3 (4.2-5.4); White Blood Count 5.7 K/mm3 (4.4-11.0)
[2019-12-24 08:30] VITALS: BP 110/49; PULSE 67; RESP 16; TEMP 36.6; O2SAT 100
[2019-12-24] MEDS: Lidocaine 5% Patch 1 PATCH TOPICAL (09:06)
[2019-12-24] MEDS: Cyanocobalamin 500 MCG Tablet 1000 MCG PO (09:07)
[2019-12-24] MEDS: Pantoprazole Sodium 40 MG Tablet PO (09:07)
[2019-12-24] MEDS: Cyanocobalamin (B12) 1,000 MCG/ML Vial 1000 MCG SC (09:07)
[2019-12-24] MEDS: APIXABAN 2.5 MG TABLET PO ×2 (09:07→20:06)
[2019-12-24 09:08] VITALS: BP 110/49; PULSE 67
[2019-12-24] MEDS: Metoprolol(XL)Succ 25 MG Tablet 12.5 MG PO (09:08)
[2019-12-24] MEDS: MAGNESIUM CHLORIDE 71.5 MG PO ×2 (09:08→20:05)
[2019-12-24] MEDS: Calcitonin-Salmon 1 SPRAY SPRAY NARES (09:11)
[2019-12-24] MEDS: Mirtazapine 15 MG Tablet 7.5 MG PO (20:06)
[2019-12-24 20:07] VITALS: BP 106/61; PULSE 76; RESP 16; TEMP 36.6; O2SAT 97
[2019-12-25] MEDS: Acetaminophen 500 MG Tablet 1000 MG PO ×3 (06:03→21:57)
[2019-12-25] MEDS: Levothyroxine 100 MCG Tablet PO (06:04)
--- NOTE | 2019-12-25 06:05 | PCM.PN.BLA ---
Progress Note Kavya was seen on team rounds today. Her daughter Juan Pablo participated in rounds by phone. Afebrile VSS maintaining appropriate oxygen saturation on RA Her oral intake is poor. Has refused Senna the past 2 days due to loose stool IF AB is elevated, MMA is pending and the homocysteine level is H HGB is stable at 9.4. White blood cell count and platelets are within normal limits. Sodium is 143 and the potassium is 4.4 today. The BUN today is 35, up from 25 1 12/22/2019. Creatinine has increased from 0.85-0.97. MMA is pending Homocysteine is high. Magnesium is low at 1.5 today and folate is normal at 9.5. Denies Lightheadedness, SOB, CP. She is sleeping better with the addition of the Remeron to the drug regimen. She still does not have much of an appetite. Pain is adequately controlled. She feels that the cream is helping with pain control in the left hip and left clavicle. She took the OxyIR 3 times on 12/23/2019 but took OxyIR only 1 time on 12/24/2019 and so far one time today. Alert, oriented X 3 Lungs - CTA with good air exchange. H RRR, no gallop no ankle edema no rashes and no breakdown ABD - soft, NT, NT no guarding with palpation Impressions 1. S/P fall with fracture of the Left clavicle and the left sup and inf pubic rami 2. memory and cognitive dysfunction - possibly related to B12 deficiency and depression....curious to see how she will do with ST today. 3. Macrocytic anemia with Hemoccult positive stool 4. Increasing creatinine and BUN with poor intake. We will continue to urge increased fluids 5. Hemoccult positive stool 6. Hypomagnesemia has received 3 doses of SC B12 and is now on an oral supplement. She has in the past been on a SL B12 supplement but it did not seem effective......with hx of radiation enteritis may not be absorbing. She also has increased IF Ab. I discussed this with Staci and the fact that you can see neurocognitive dysfunction without significant anemia and she would like a RX for B12 to give SC at home at [place]. Await the results of the MMA. I am thinking she may be iron deficient also....the TIBC is high normal and the iron sat is only 14%....the ferritin is 213 but, ferritin is an acute phase reactant and she just recently fractured 3 bones so there is likely a lot of inflammation. Will start an oral iron supplement and give iron sucrose today - I suspect her HGB is actually lower than 9.4 because she is intravascularly depleted and she is on Apixaban and has heme + stool. Continue Protonix 40 mg daily Increase the Slow-Mag to 1 tablet 3 times daily If she continues to tolerate the Remeron with no adverse side effect will increase the dose to 15 mg Q HS on 12/31/19. she will be going home with her dtr at [place]. Staci will come to the hospital on Wed to work with therapy on how best to assist her at [place]. Will have HHC at [place]. Inpatient E&M: [id number] Subs Hosp L2
[2019-12-25 07:26] LABS: Hematocrit 30.1 % (37-47); Hemoglobin 9.4 g/dL (12.0-15.0); Mean Corp Hgb Conc 31.2 g/dL (32-36); Mean Corpuscular Hgb 31.9 pg (27.0-32.0); Mean Platelet Vol. 9.6 fl (6.2-12.0); Platelet Count 400 K/mm3 (150-450); RBC Distribution Width SD 48.2 fl (35.1-43.9); Red Blood Count 2.95 M/mm3 (4.2-5.4); White Blood Count 6.1 K/mm3 (4.4-11.0)
[2019-12-25 07:46] LABS: Anion Gap 6 (5-15); BUN 35 mg/dL (7-18); BUN/Creat Ratio 36.1 RATIO (10-20); Calcium,Total 9.1 mg/dL (8.5-10.1); Chloride 110 mmol/L (98-107); Creatinine, Serum 0.97 mg/dL (0.55-1.02); EST Glomerular Filtration Rate 59 mL/min (>60); Est Glom Filt Rate - Afr Amer 71 mL/min (>60); Estimated Creatinine Clearance 33.96 ml/min; Glucose 86 mg/dL (74-106); Magnesium 1.5 mg/dL (1.6-2.6); Potassium 4.4 mmol/L (3.5-5.1); Sodium Level 143 mmol/L (136-145)
[2019-12-25] MEDS: Cyanocobalamin 500 MCG Tablet 1000 MCG PO (08:10)
[2019-12-25] MEDS: Pantoprazole Sodium 40 MG Tablet PO (08:10)
[2019-12-25] MEDS: APIXABAN 2.5 MG TABLET PO ×2 (08:11→20:39)
[2019-12-25] MEDS: MAGNESIUM CHLORIDE 71.5 MG PO ×3 (08:11→20:43)
[2019-12-25] MEDS: Cyanocobalamin (B12) 1,000 MCG/ML Vial 1000 MCG SC (08:11)
[2019-12-25] MEDS: Senna/Docusate Sodium 1 Tablet PO ×2 (08:11→20:41)
[2019-12-25 08:12] VITALS: BP 141/82; PULSE 64
[2019-12-25] MEDS: Metoprolol(XL)Succ 25 MG Tablet 12.5 MG PO (08:12)
[2019-12-25] MEDS: oxyCODONE 5 MG Tablet 2.5 MG PO (08:17)
[2019-12-25] MEDS: Calcitonin-Salmon 1 SPRAY SPRAY NARES (08:21)
[2019-12-25 09:10] VITALS: BP 108/52; PULSE 64; RESP 16; TEMP 36.7; O2SAT 96
--- NOTE | 2019-12-25 12:42 | CASEMGMT ---
Addendum entered by Yaritza Mckeon 12/27/19 17:03: [facility] unable to accept referral. Referred to [facility]. Addendum entered by Yaritza Mckeon 12/27/19 15:22: Dtr requested [facility] and [facility] . Referrals made. Original Note: Social Work IDT met with patient and dtr via conference call for Team Meeting. Discussed patient's progress in therapy. Pt is CGA to min assist transfers, min assist for bed mobility, completed 2 steps at min assist, ambulating 40 ft with hemiwalker at CGA, averages 20-25 ft, left arm ROM in therapy and needs cues not to bear weight. Pt is min assist for LE bathing, standing to do grooming for 5-6 mins CGA, min assist for UE dressing, CGA for LE dressing. ST reports pt having cognitive impairment with naming tasks, word finding, slower responses, working memory, and repetitive in conversation that pt is not aware of. Encouraging reorientation and forward memory strategies when pt DCs. The goal is for pt to move into dtr's house in [place] with C. Provided list of [facility] agencies. Referred to [facility] for half-bed rail, [facility] for hemiwalker. Dtr to get shower chair and grab bars. Will continue to follow for [facility] referral. Plan: DC to dtr's home 12/29 with [facility] PT/OT/ST/SN. Hemiwalker, half bed rail REED Siu DEGREE CLERK
--- NOTE | 2019-12-25 14:55 | NURSING ---
Left message for dr susan vick office to see if he would take over pt's care p/pt's daughters request.
[2019-12-25 19:39] VITALS: BP 118/58; PULSE 64; RESP 16; TEMP 37.1; O2SAT 95
[2019-12-25] MEDS: 0.9% Saline Lock 10 ML Syringe IV (20:24)
[2019-12-25] MEDS: Mirtazapine 15 MG Tablet 7.5 MG PO (20:39)
[2019-12-25 22:00] VITALS: O2SAT 96
[2019-12-26 05:45] LABS: Hematocrit 27.8 % (37-47); Hemoglobin 8.6 g/dL (12.0-15.0)
[2019-12-26 06:09] LABS: Anion Gap 5 (5-15); BUN 35 mg/dL (7-18); BUN/Creat Ratio 38.3 RATIO (10-20); Calcium,Total 8.6 mg/dL (8.5-10.1); Chloride 111 mmol/L (98-107); Creatinine, Serum 0.91 mg/dL (0.55-1.02); EST Glomerular Filtration Rate 63 mL/min (>60); Est Glom Filt Rate - Afr Amer 76 mL/min (>60); Glucose 85 mg/dL (74-106); Magnesium 2.2 mg/dL (1.6-2.6); Potassium 4.1 mmol/L (3.5-5.1); Sodium Level 142 mmol/L (136-145)
[2019-12-26] MEDS: MAGNESIUM CHLORIDE 71.5 MG PO ×3 (06:16→21:03)
[2019-12-26] MEDS: Levothyroxine 100 MCG Tablet PO (06:16)
[2019-12-26] MEDS: Acetaminophen 500 MG Tablet 1000 MG PO ×3 (06:17→21:05)
[2019-12-26 07:40] VITALS: BP 139/60; PULSE 62; RESP 17; TEMP 36.6; O2SAT 100
[2019-12-26] MEDS: Ferrous Gluconate 324 MG Tablet PO (07:59)
[2019-12-26 08:00] VITALS: BP 139/69; PULSE 62
[2019-12-26] MEDS: APIXABAN 2.5 MG TABLET PO ×2 (08:00→21:04)
[2019-12-26] MEDS: Metoprolol(XL)Succ 25 MG Tablet 12.5 MG PO (08:00)
[2019-12-26] MEDS: Cyanocobalamin 500 MCG Tablet 1000 MCG PO (08:00)
[2019-12-26] MEDS: oxyCODONE 5 MG Tablet 2.5 MG PO ×2 (08:01→12:53)
[2019-12-26] MEDS: Senna/Docusate Sodium 1 Tablet PO ×2 (08:01→21:04)
[2019-12-26] MEDS: Pantoprazole Sodium 40 MG Tablet PO (08:01)
[2019-12-26] MEDS: Calcitonin-Salmon 1 SPRAY SPRAY NARES (08:11)
--- NOTE | 2019-12-26 11:42 | PN_ITS ---
Progress Note Afebrile since admission Vital signs are stable and the blood pressure is well controlled. Blood pressure has improved with hydration yesterday. It was on the low side over the weekend. Her fluid intake improved yesterday and she took 1020 p.o. The fluid balance yesterday was +879. She had 1 bowel movement yesterday. The hemoglobin today is 8.6, down from 9.4 on 12/25/2019 more likely than not secondary to hydration. The sodium is 142 and the potassium is 4.1. BUN continues to be elevated at 35 and the creatinine is 0.91. Magnesium today is 2.2 following increase to Slow-Mag 3 times daily and 2 g of IV magnesium yesterday. MMA is still pending. I observed her walking in the tang with the rebel-walker and she is doing much better today. Her gait is much more fluid today. Pain is adequately controlled. She denies lightheadedness. I reviewed the ST note and the repetitive statements present in prior sessions were not present yesterday. This was also observed by ot. STM is still poor. She is progressing with ST and ST is workig with her to set up a memory station at home in the future. She needed minimum assistance/CGA to stand on 12/25/2019. She ambulated 15 to 40 feet with a hemiwalker at CGA. She was able to do 3 sets 3 Inch Steps with Minimal Assistance with Right Handrail on 12/25/2019. She Completed the TUG and 56.03 Seconds with a Rebel-walker. She was able to complete 5 stands in 30 seconds on 12/25/2019. She did well with OT and really only requires more that CGA/min assist with donning the LUE sling. Kavya will going to home with her dtr who lives in [place] and they would like her to follow with Dr. Dandy Perez for the fractures. She is as usual very pleasant. We discussed what a memory station is and how it will help her. I asked her what she would do if there was a fire in the kitchen. I said that would not be a good idea because she may get hurt and then she said she would call her son who does not live far away and I asked what if he does not answer or is not at home. She was unable to tell me to call 911. This is the purpose of a memory station......she could big big reminder to call 911 for emergences there. She could also have a calendar with appts on it and a note board to attach the little notes she writes herself and she have a phone there and keep her medications there and a grocery list so that she would always go to the same spot for information. She ws taking notes while I was talking with her. We were also trying to think of things she could do besides golf to keep active and to be with people and socialize. She loves the theater and we talked about the [place] series at [facility]. We talked about Bible Study which she used to have at her house. We also talked about having friends and her sister over to her house for lunch. She loves to go to [employer]. We talked how important socialization is when you are depressed and very sad about the loss of your . I commended her for keeping her who suffered from dementia in the home and reinforced what a strain that is on family and what a sacrifice she personally made to care for him at home. Now that he has passed she deserves to have fun. She likes to travel also. She wrote some of these suggestions down. Impressions 1. debility due to recent fall resulting in fracture of the left clavicle and pelvis 2. cognitive dysfunction - I suspect this is multifactorial. Depression, B12 deficiency, isolation. I am still hopeful that supplementing B12 and treating depression will help but, we discussed also seeing a neurologist for possible dementia and she is OK with this. We talked about medication to help slow down memory loss and also about the importance of keeping active and not isolating. 3. Suspected osteoporosis - I have her on Miacalcin temporarily because is can help with pain from acute fracture but will likely change to a bisphosphonate at DC 4. [facility] Vital Signs/Narrative: Vital Signs Pulse BP 12/26/19 08:00 62 139/69 H Inpatient E&M: [id number] Subs Hosp L2
[2019-12-26] MEDS: Mirtazapine 15 MG Tablet 7.5 MG PO (21:04)
[2019-12-26] MEDS: 0.9% Saline Lock 10 ML Syringe IV (21:12)
[2019-12-26 21:14] VITALS: BP 112/62; PULSE 66; RESP 16; TEMP 36.8; O2SAT 98
[2019-12-27] MEDS: Acetaminophen 500 MG Tablet 1000 MG PO ×3 (05:36→21:19)
[2019-12-27] MEDS: Levothyroxine 100 MCG Tablet PO (05:37)
[2019-12-27] MEDS: MAGNESIUM CHLORIDE 71.5 MG PO ×3 (05:38→21:21)
[2019-12-27 08:07] VITALS: BP 130/56; PULSE 68
[2019-12-27] MEDS: Metoprolol(XL)Succ 25 MG Tablet 12.5 MG PO (08:07)
[2019-12-27] MEDS: Cyanocobalamin 500 MCG Tablet 1000 MCG PO (08:07)
[2019-12-27] MEDS: APIXABAN 2.5 MG TABLET PO ×2 (08:07→21:22)
[2019-12-27] MEDS: Ferrous Gluconate 324 MG Tablet PO (08:07)
[2019-12-27] MEDS: Calcitonin-Salmon 1 SPRAY SPRAY NARES (08:08)
[2019-12-27] MEDS: Senna/Docusate Sodium 1 Tablet PO ×2 (08:08→21:23)
[2019-12-27] MEDS: Pantoprazole Sodium 40 MG Tablet PO (08:08)
[2019-12-27] MEDS: oxyCODONE 5 MG Tablet 2.5 MG PO ×2 (08:08→13:02)
[2019-12-27] MEDS: 0.9% Saline Lock 10 ML Syringe IV (08:12)
[2019-12-27 08:13] VITALS: BP 130/56; PULSE 68; RESP 16; TEMP 36.7; O2SAT 95
--- NOTE | 2019-12-27 12:01 | PCM.PN.BLA ---
Progress Note Afebrile Vital signs are stable and blood pressure is well controlled Maintaining appropriate oxygen saturation on room air Oral intake remains inconsistent and there are many days when she does not even reach 1 L daily. All lab was personally reviewed. The MMA was WNL and this is not consistent with B12 deficiency but, the IF AB was increased at 1.2. homocysteine was elevated and the folic acid was WNL. The BUN yesterday was 35 and the creat was a little better BUT, her PO intake yesterday was only 840 cc's and she is going home tomorrow. Alert, oriented x3, pleasant, not repeating herself Lungs-clear to auscultation with excellent air exchange Heart-regular rate and rhythm, no gallop Abdomen-soft, nontender, nondistended, no guarding with palpation No peripheral edema No rashes, no breakdown No focal neurologic deficits Impressions 1. debility due to recent fall resulting in fracture of the left clavicle and pelvis 2. cognitive dysfunction - I suspect this is multifactorial. Depression, B12 deficiency, isolation. I am still hopeful that supplementing B12 and treating depression will help but, we discussed also seeing a neurologist for possible dementia and she is OK with this. We talked about medication to help slow down memory loss and also about the importance of keeping active and not isolating. 3. Suspected osteoporosis - I have her on Miacalcin temporarily because is can help with pain from acute fracture but will likely change to a bisphosphonate at MD 4. Depression- continue the Remeron...she may benefit from psychotherapy 5. Hypomagnesemia - chronic, intolerant Pt promises that she will increase her water intake today.....if she does not she knows that she will be getting IV hydration recheck Mag, BMP and HH in the AM Orthostatics now and repeat in the AM Plan DC tomorrow Dtr is coming in this afternoon for training with the therapists. STROKE Vital Signs/Narrative: Vital Signs Temp Pulse Resp BP Pulse Ox 12/27/19 08:13 98.0 F 68 16 130/56 H 95 12/27/19 08:07 68 130/56 H Inpatient E&M: 94872 Subs Hosp L2
[2019-12-27 13:36] VITALS: BP 119/76; BP 126/56; BP 141/75; PULSE 69; PULSE 77
--- NOTE | 2019-12-27 15:39 | CHAPLAIN ---
Type of Pastoral Visit ___ Initial Visit _x__ Follow-up Visit ___ On-call Visit ___ General Patient Visit ___ Spiritual Assessment ___ Family Conference ___ Bereavement ___ Rapid Response ___ Code Blue ___ Other (describe below) Pastoral Care Referral From _x__ Patient ___ Family ___ Nurse ___ Physician ___ Trade Specialist ___ Vat Operator ___ Other (describe below) Sacrament/Intervention _x__ Active listening ___ Anointing ___ Spiritism ___ Bereavement ___ Communion ___ Lore exploration ___ ___ Life review _x__ Prayer ___ Reconciliation ___ Sacrament of Sick _x__ Supportive presence ___ Wedding ___ Other (describe below) Pastoral Comments
[2019-12-27] MEDS: Mirtazapine 15 MG Tablet 7.5 MG PO (21:18)
[2019-12-27 22:00] VITALS: BP 119/49; PULSE 59; RESP 16; TEMP 36.7; O2SAT 98
[2019-12-28] MEDS: oxyCODONE 5 MG Tablet 2.5 MG PO (02:07)
[2019-12-28] MEDS: Acetaminophen 500 MG Tablet 1000 MG PO ×2 (04:59→13:48)
[2019-12-28] MEDS: Levothyroxine 100 MCG Tablet PO (04:59)
[2019-12-28] MEDS: MAGNESIUM CHLORIDE 71.5 MG PO ×2 (04:59→13:49)
[2019-12-28 06:00] VITALS: BP 104/41; BP 147/68; BP 152/76; PULSE 61; PULSE 62; PULSE 66
[2019-12-28 07:30] VITALS: BP 114/63; PULSE 62; RESP 16; TEMP 36.7; O2SAT 99
[2019-12-28 07:40] LABS: Hematocrit 28.9 % (37-47); Hemoglobin 9.1 g/dL (12.0-15.0)
[2019-12-28 08:07] LABS: Anion Gap 4 (5-15); BUN 36 mg/dL (7-18); BUN/Creat Ratio 39.8 RATIO (10-20); Chloride 112 mmol/L (98-107); EST Glomerular Filtration Rate 64 mL/min (>60); Est Glom Filt Rate - Afr Amer 77 mL/min (>60); Estimated Creatinine Clearance 36.92 ml/min; Glucose 82 mg/dL (74-106); Magnesium 1.6 mg/dL (1.6-2.6); Potassium 4.8 mmol/L (3.5-5.1); Sodium Level 143 mmol/L (136-145)
[2019-12-28] MEDS: Cyanocobalamin 500 MCG Tablet 1000 MCG PO (09:14)
[2019-12-28] MEDS: Ferrous Gluconate 324 MG Tablet PO (09:14)
[2019-12-28] MEDS: Pantoprazole Sodium 40 MG Tablet PO (09:15)
[2019-12-28] MEDS: APIXABAN 2.5 MG TABLET PO (09:15)
[2019-12-28 09:16] VITALS: PULSE 62
[2019-12-28] MEDS: Metoprolol(XL)Succ 25 MG Tablet 12.5 MG PO (09:16)
[2019-12-28] MEDS: Calcitonin-Salmon 1 SPRAY SPRAY NARES (09:20)
--- NOTE | 2019-12-28 12:09 | PCM.DC ---
- Discharge Diagnoses Current Active Problems: Current Active and Chronic Problems (Last Reviewed 12/15/19 @ 12:[address] Pooja Alvarez DO) Closed pelvic fracture (Acute) Left pubic rami due to a fall Closed left clavicular fracture (Acute) due to a fall Abdominal bruit (Chronic) Paroxysmal atrial fibrillation (Chronic) Chronic anticoagulation (Chronic) On apixaban History of right breast cancer (Chronic) She had a right radical mastectomy in 1974 Status post right mastectomy (Chronic) 1974 Diverticulosis (Chronic) History of endometrial cancer (Chronic) History of hysterectomy for cancer (Acute) Hysterectomy in 2005 Gastritis (Chronic) Hyperlipidemia (Chronic) Hypothyroidism (Chronic) Hepatic cyst (Chronic) Chronic low back pain (Chronic) Mitral regurgitation (Chronic) Overactive bladder (Chronic) GERD with esophagitis (Chronic) B12 deficiency (Acute) Vitamin D deficiency (Chronic) Disturbance of memory (Chronic) over the past year (2019) Macrocytic anemia (Acute) You will use the following diet at home:: No restrictions Your food should be the consistency of: Regular Your liquids should be the consistency of: Regular/Thin Discharge Activity: May Not Drive, May Shower, - - use the daphne-walker Ice area for (Minutes): 15 Weight Bearing Status: Weight bearing as tolerated - on the left leg Lifting Restrictions: no lifting with the L arm until the clavicle fracture is healed Keep extremity elevated above heart level: Left Leg Call your doctor if you observe: Fever of 101 or Higher, Numbness or Tingling, Change in Color, Inability to have a bowel movement, Shortness of breath, Dizziness, Fainting spells, Swelling in the ankles, Chest pain, Calf discomfort, Uncontrolled pain Instructions: What Is Osteoporosis?, Bone Density Study, Preventing Osteoporosis: Staying Active, Living with Osteoporosis: Preventing Fractures, Living with Osteoporosis: Regular Exercise, Osteoporosis Medications: Bisphosphonates, Vitamin D, Intrinsic Factor Antibody Additional Instructions: 1. I have started you on a medication to treat osteoporosis. In the hospital you were on a nasal spray called calcitonin for osteoporosis because I use this for the first 1-2 weeks after a fracture because it can help with the acute pain. I have transitioned you to Fosamax which you will take once a week. You will take this on an empty stomach first thing in the morning. You must be seated upright in a chair and remain upright for 30-60 minutes afterward. No drinking or eating for 30-60 minutes. The biggest side effect of this is reflux and that is why you take it sitting up and on an empty stomache. 2. I think you have pernicious anemia. This is anemia due to a B12 deficiency due to antibodies to Intrinsic factor......intrinsic factor is necessary to absorb B12 from the GI tract. You have an intrinsic factor antibody in your blood. I am prescribing you B12 that you will get in an injection once a month. 3. I think the problem with your memory is multifactorial. I think you are depressed and you have been started on a antidepressant at bedtime......I would recommend you take this for 6 months and if at that time you are doing well you can decrease the dose in half for a month and if you are still doing well you can try stopping it. 4. I would like you to see a neurologist in about a month to evaulate your memory and decide if you need a medication for dementia. 5. You need a bone density study and this should be repeated in 1-2 years to see if the Fosamax is helping. 6. You will need a magnesium level in 1-2 weeks.....I would like to see the Mag around 2. Magnesium is important to maintain healthy bone and muscle.......it is also important in preventing atrial fibrillation. 7. It was a pleasure meeting you Kavya and you have done very well in therapy. Your was a very ector man. It is so diffficult caring for a patient with dementia when it is advanced and you kept him home and cared for him. What a loving selfless thing to do. Now is your time to have FUN! Travel, go to the theater, go golfing when the fractures have healed,go to gifted[employer]you[employer] study, go out with friends......Do whatever you want and are able to do. If you ever need a golf robert my phone number is [phone]. If you have questions after youleave please do not hesitate to call me. You could also call the rehab unit at [phone]. Allergies/Adverse Reactions: Allergies ciprofloxacin Allergy (Unknown, Verified 12/14/19 15:23) Itching nitrofurantoin [From Macrobid] Allergy (Unknown, Verified 12/14/19 15:23) Itching sulfamethoxazole [From Bactrim] Allergy (Verified 12/14/19 15:23) Itching trimethoprim [From Bactrim] Allergy (Verified 12/14/19 15:23) Itching Medications to take at Discharge Apixaban [Eliquis] 2.5 mg PO BID 12/14/19 Cholecalciferol (VIT D3) [Vitamin D3] 50,000 units PO QWEEK 12/14/19 Diphenoxylate HCl/Atropine [Lomotil 2.5-0.025 mg Tablet] 1 tab PO DAILY 12/14/19 Levothyroxine [Synthroid] 100 mcg PO DAILY 12/14/19 Metoprolol Succinate [Toprol Xl] 12.5 mg PO DAILY 12/14/19 Omeprazole 40 mg PO DAILY 12/14/19 Potassium Chloride 10 meq PO DAILY 12/14/19 Acetaminophen [Tylenol] 1,000 mg PO Q8 tab 12/28/19 Alendronate Sodium [Fosamax] 70 mg PO QWEEK #4 tab 12/28/19 Cyanocobalamin (Vitamin B-12) [Cyanocobalamin Injection] 1,000 mcg IJ UD 30 Days #1 vial 12/28/19 Ferrous Gluconate 324 mg PO DAILY@0800 #30 tab 12/28/19 Lidocaine 1 patch TRANSDERM. DAILY #30 patch 12/28/19 Magnesium Chloride [Slow-Mag] 71.5 mg PO TID #90 tablet. 12/28/19 Mineral Oil/Petrolatum,White [Eucerin] 1 applic TOPICAL QHS jar 12/28/19 Mirtazapine [Remeron] 7.5 mg PO 2100 #30 tab 12/28/19 Oxycodone [Oxyir] 2.5 mg PO Q4H PRN PRN #42 tab 12/28/19 The following prescriptions were given: Cyanocobalamin (Vitamin B-12) [Cyanocobalamin Injection] 1,000 mcg IJ UD 30 Days #1 vial Transmission Status: Received by [facility] Ferrous Gluconate 324 mg PO DAILY@0800 #30 tab Transmission Status: Received by [facility] Alendronate Sodium [Fosamax] 70 mg PO QWEEK #4 tab Transmission Status: Received by [facility] Lidocaine 1 patch TRANSDERM. DAILY #30 patch Transmission Status: Received by [facility] Oxycodone [Oxyir] 2.5 mg PO Q4H PRN PRN #42 tab PRN Reason: Pain 1-05/18 Transmission Status: Received by [facility] Mirtazapine [Remeron] 7.5 mg PO 2100 #30 tab Transmission Status: Received by [facility] Magnesium Chloride [Slow-Mag] 71.5 mg PO TID #90 tablet. Transmission Status: Received by [facility] Primary Care Physician: ALLIE RODRIGUEZ [Other] Please follow up with your Primary Care Physician in: when you ge back home Test Results: Test results from this visit will be discussed in further detail at your follow-up appointment, if applicable. Please Follow Up With: Dr Hidalgo Shoulder Please Follow Up With: Dr Obrien Hip Please Follow Up With: Dr Ang Please Follow Up With: Dandy Perez MD When: in 2 weeks Please Follow Up With: neurology Proposed Discharge Date: 12/28/19
--- NOTE | 2019-12-28 12:41 | DS.PCM_ITS ---
Discharge Date and Diagnosis Date of Admission: 12/14/19 Date of Discharge: 12/28/19 - Primary Discharge Diagnosis Acute Problems: Active Problems (Last Reviewed 12/15/19 @ 12:[address] Pooja Alvarez DO) Physical debility (Acute) due to fall resulting in fracture of the left clavicle and the Left inferior and superior pubic rami Closed pelvic fracture (Acute) Left superior and inferior pubic rami due to a fall Closed left clavicular fracture (Acute) due to a fall Dehydration (Acute) Heme + stool (Acute) Hypomagnesemia (Acute) Iron deficiency (suspected) Suspected Problems: Suspected Problems (Last Reviewed 12/15/19 @ 12:[address] Pooja Alvarez DO) Iron deficiency (Suspected) - Secondary Discharge Diagnosis Chronic Problems: Chronic Problems (Last Reviewed 12/15/19 @ 12:[address] Pooja Alvarez DO) Depression - with sleep disturbance, poor appetite, weight loss and loss of motivation, isolating behavior Pernicious anemia (Chronic) with + IF antibody Onychomycosis (Chronic) all toenails Abdominal bruit (Chronic) Paroxysmal atrial fibrillation (Chronic) Chronic anticoagulation (Chronic) On apixaban History of right breast cancer (Chronic) She had a right radical mastectomy in 1974 Status post right mastectomy (Chronic) 1974 History of hysterectomy for cancer (Acute) Hysterectomy in 2005 History of endometrial cancer (Chronic) Diverticulosis (Chronic) Gastritis (Chronic) - on PPI chronically Hyperlipidemia (Chronic) Hypothyroidism (Chronic) Hepatic cyst (Chronic) Chronic low back pain (Chronic) Mitral regurgitation (Chronic) Overactive bladder (Chronic) GERD with esophagitis (Chronic) Vitamin D deficiency (Chronic) Disturbance of memory (Chronic) over the past year (2019) Hospital Course and Treatment Imaging Results: Laboratory Tests 12/28/19 12/28/19 12/26/19 Range/Units 07:13 07:13 05:25 WBC (4.4-11.0) K/mm3 RBC (4.2-5.4) M/mm3 Hgb 9.1 L (12.0-15.0) g/dL Hct 28.9 L (37-47) % MCV (81-99) fL MCH (27.0-32.0) pg MCHC (32-36) g/dL RDW Std Deviation (35.1-43.9) fl RDW Coeff of Tati (11.6-14.6) % Plt Count (150-450) K/mm3 MPV (6.2-12.0) fl Immature Gran % (Auto) (0.0-0.9) % Neut % (Auto) (47-70) % Lymph % (Auto) (19-41) % Josephine % (Auto) (0-10) % Eos % (Auto) (0-5) % Baso % (Auto) (0-1) % Absolute Neuts (auto) (2.0-7.7) X10^3/uL Absolute Lymphs (auto) (0.83-4.51) X10^3/uL Nucleated RBC % (0-5) % Sodium 143 142 (136-145) mmol/L Potassium 4.8 4.1 (3.5-5.1) mmol/L Chloride 112 H 111 H (98-107) mmol/L Carbon Dioxide 27.0 26.0 (21.0-32.0) mmol/L Anion Gap 4 L 5 (5-15) BUN 36 H 35 H (7-18) mg/dL Creatinine 0.90 0.91 (0.55-1.02) mg/dL Estim Creat Clear Calc 36.92 36.20 ml/min Est GFR (MDRD) Af Amer 77 76 (>60) mL/min Est GFR (MDRD) Non-Af 64 63 (>60) mL/min BUN/Creatinine Ratio 39.8 H 38.3 H (10-20) RATIO Glucose 82 85 (74-106) mg/dL Calcium 9.0 8.6 (8.5-10.1) mg/dL Phosphorus (2.5-4.9) mg/dL Magnesium 1.6 2.2 (1.6-2.6) mg/dL Iron (50-170) ug/dL TIBC (250-450) ug/dL Iron Saturation (15.0-55.0) % Ferritin (8-252) ng/mL Total Bilirubin (0.20-1.00) mg/dL AST (15-37) U/L ALT (13-56) U/L Alkaline Phosphatase (45-117) U/L Total Protein (6.4-8.2) g/dL Albumin (3.2-5.0) g/dL Globulin (2.2-4.2) g/dL Albumin/Globulin Ratio (0.9-2.4) RATIO Vitamin B12 Methylmalonic Acid Vitamin D 25-Hydroxy ng/mL Folate (3.1-55.4) ng/mL Homocysteine (3.2-10.7) umol/L PTH Intact (18.4-80.1) pg/mL Intrinsic Factor Ab (0.0-1.1) AU/mL 12/26/19 12/25/19 12/25/19 Range/Units 05:25 06:47 06:47 WBC (4.4-11.0) K/mm3 RBC (4.2-5.4) M/mm3 Hgb 8.6 L (12.0-15.0) g/dL Hct 27.8 L (37-47) % MCV (81-99) fL MCH (27.0-32.0) pg MCHC (32-36) g/dL RDW Std Deviation (35.1-43.9) fl RDW Coeff of Atti (11.6-14.6) % Plt Count (150-450) K/mm3 MPV (6.2-12.0) fl Immature Gran % (Auto) (0.0-0.9) % Neut % (Auto) (47-70) % Lymph % (Auto) (19-41) % Josephine % (Auto) (0-10) % Eos % (Auto) (0-5) % Baso % (Auto) (0-1) % Absolute Neuts (auto) (2.0-7.7) X10^3/uL Absolute Lymphs (auto) (0.83-4.51) X10^3/uL Nucleated RBC % (0-5) % Sodium 143 (136-145) mmol/L Potassium 4.4 (3.5-5.1) mmol/L Chloride 110 H (98-107) mmol/L Carbon Dioxide 27.0 (21.0-32.0) mmol/L Anion Gap 6 (5-15) BUN 35 H (7-18) mg/dL Creatinine 0.97 (0.55-1.02) mg/dL Estim Creat Clear Calc 33.96 ml/min Est GFR (MDRD) Af Amer 71 (>60) mL/min Est GFR (MDRD) Non-Af 59 L (>60) mL/min BUN/Creatinine Ratio 36.1 H (10-20) RATIO Glucose 86 (74-106) mg/dL Calcium 9.1 (8.5-10.1) mg/dL Phosphorus (2.5-4.9) mg/dL Magnesium 1.5 L (1.6-2.6) mg/dL Iron (50-170) ug/dL TIBC (250-450) ug/dL Iron Saturation (15.0-55.0) % Ferritin (8-252) ng/mL Total Bilirubin (0.20-1.00) mg/dL AST (15-37) U/L ALT (13-56) U/L Alkaline Phosphatase (45-117) U/L Total Protein (6.4-8.2) g/dL Albumin (3.2-5.0) g/dL Globulin (2.2-4.2) g/dL Albumin/Globulin Ratio (0.9-2.4) RATIO Vitamin B12 Methylmalonic Acid Vitamin D 25-Hydroxy ng/mL Folate 9.50 (3.1-55.4) ng/mL Homocysteine (3.2-10.7) umol/L PTH Intact (18.4-80.1) pg/mL Intrinsic Factor Ab (0.0-1.1) AU/mL 12/25/19 12/24/19 12/23/19 Range/Units 06:47 05:25 06:15 WBC 6.1 5.7 5.5 (4.4-11.0) K/mm3 RBC 2.95 L 2.97 L 2.99 L (4.2-5.4) M/mm3 Hgb 9.4 L 9.5 L 9.5 L (12.0-15.0) g/dL Hct 30.1 L 30.5 L 30.2 L (37-47) % MCV 102.0 H 102.7 H 101.0 H (81-99) fL MCH 31.9 32.0 31.8 (27.0-32.0) pg MCHC 31.2 L 31.1 L 31.5 L (32-36) g/dL RDW Std Deviation 48.2 H 48.0 H 47.9 H (35.1-43.9) fl RDW Coeff of Tati 13.0 12.8 12.9 (11.6-14.6) % Plt Count 400 366 349 (150-450) K/mm3 MPV 9.6 9.5 9.4 (6.2-12.0) fl Immature Gran % (Auto) (0.0-0.9) % Neut % (Auto) (47-70) % Lymph % (Auto) (19-41) % Josephine % (Auto) (0-10) % Eos % (Auto) (0-5) % Baso % (Auto) (0-1) % Absolute Neuts (auto) (2.0-7.7) X10^3/uL Absolute Lymphs (auto) (0.83-4.51) X10^3/uL Nucleated RBC % (0-5) % Sodium (136-145) mmol/L Potassium (3.5-5.1) mmol/L Chloride (98-107) mmol/L Carbon Dioxide (21.0-32.0) mmol/L Anion Gap (5-15) BUN (7-18) mg/dL Creatinine (0.55-1.02) mg/dL Estim Creat Clear Calc ml/min Est GFR (MDRD) Af Amer (>60) mL/min Est GFR (MDRD) Non-Af (>60) mL/min BUN/Creatinine Ratio (10-20) RATIO Glucose (74-106) mg/dL Calcium (8.5-10.1) mg/dL Phosphorus (2.5-4.9) mg/dL Magnesium (1.6-2.6) mg/dL Iron (50-170) ug/dL TIBC (250-450) ug/dL Iron Saturation (15.0-55.0) % Ferritin (8-252) ng/mL Total Bilirubin (0.20-1.00) mg/dL AST (15-37) U/L ALT (13-56) U/L Alkaline Phosphatase (45-117) U/L Total Protein (6.4-8.2) g/dL Albumin (3.2-5.0) g/dL Globulin (2.2-4.2) g/dL Albumin/Globulin Ratio (0.9-2.4) RATIO Vitamin B12 Methylmalonic Acid Vitamin D 25-Hydroxy ng/mL Folate (3.1-55.4) ng/mL Homocysteine (3.2-10.7) umol/L PTH Intact (18.4-80.1) pg/mL Intrinsic Factor Ab (0.0-1.1) AU/mL 12/22/19 12/22/19 12/21/19 Range/Units 05:40 05:40 14:52 WBC (4.4-11.0) K/mm3 RBC (4.2-5.4) M/mm3 Hgb 9.3 L (12.0-15.0) g/dL Hct 29.2 L (37-47) % MCV (81-99) fL MCH (27.0-32.0) pg MCHC (32-36) g/dL RDW Std Deviation (35.1-43.9) fl RDW Coeff of Tati (11.6-14.6) % Plt Count (150-450) K/mm3 MPV (6.2-12.0) fl Immature Gran % (Auto) (0.0-0.9) % Neut % (Auto) (47-70) % Lymph % (Auto) (19-41) % Josephine % (Auto) (0-10) % Eos % (Auto) (0-5) % Baso % (Auto) (0-1) % Absolute Neuts (auto) (2.0-7.7) X10^3/uL Absolute Lymphs (auto) (0.83-4.51) X10^3/uL Nucleated RBC % (0-5) % Sodium 143 (136-145) mmol/L Potassium 4.4 (3.5-5.1) mmol/L Chloride 111 H (98-107) mmol/L Carbon Dioxide 26.0 (21.0-32.0) mmol/L Anion Gap 6 (5-15) BUN 25 H (7-18) mg/dL Creatinine 0.85 (0.55-1.02) mg/dL Estim Creat Clear Calc 38.76 ml/min Est GFR (MDRD) Af Amer 82 (>60) mL/min Est GFR (MDRD) Non-Af 68 (>60) mL/min BUN/Creatinine Ratio 29.4 H (10-20) RATIO Glucose 88 (74-106) mg/dL Calcium 9.2 (8.5-10.1) mg/dL Phosphorus (2.5-4.9) mg/dL Magnesium 1.7 (1.6-2.6) mg/dL Iron (50-170) ug/dL TIBC (250-450) ug/dL Iron Saturation (15.0-55.0) % Ferritin (8-252) ng/mL Total Bilirubin (0.20-1.00) mg/dL AST (15-37) U/L ALT (13-56) U/L Alkaline Phosphatase (45-117) U/L Total Protein (6.4-8.2) g/dL Albumin (3.2-5.0) g/dL Globulin (2.2-4.2) g/dL Albumin/Globulin Ratio (0.9-2.4) RATIO Vitamin B12 Methylmalonic Acid Vitamin D 25-Hydroxy ng/mL Folate (3.1-55.4) ng/mL Homocysteine (3.2-10.7) umol/L PTH Intact (18.4-80.1) pg/mL Intrinsic Factor Ab (0.0-1.1) AU/mL 12/21/19 12/21/19 12/19/19 Range/Units 14:52 14:52 05:45 WBC (4.4-11.0) K/mm3 RBC (4.2-5.4) M/mm3 Hgb (12.0-15.0) g/dL Hct (37-47) % MCV (81-99) fL MCH (27.0-32.0) pg MCHC (32-36) g/dL RDW Std Deviation (35.1-43.9) fl RDW Coeff of Tati (11.6-14.6) % Plt Count (150-450) K/mm3 MPV (6.2-12.0) fl Immature Gran % (Auto) (0.0-0.9) % Neut % (Auto) (47-70) % Lymph % (Auto) (19-41) % Josephine % (Auto) (0-10) % Eos % (Auto) (0-5) % Baso % (Auto) (0-1) % Absolute Neuts (auto) (2.0-7.7) X10^3/uL Absolute Lymphs (auto) (0.83-4.51) X10^3/uL Nucleated RBC % (0-5) % Sodium 139 (136-145) mmol/L Potassium 3.9 (3.5-5.1) mmol/L Chloride 106 (98-107) mmol/L Carbon Dioxide 27.0 (21.0-32.0) mmol/L Anion Gap 6 (5-15) BUN 22 H (7-18) mg/dL Creatinine 0.93 (0.55-1.02) mg/dL Estim Creat Clear Calc 35.80 ml/min Est GFR (MDRD) Af Amer 75 (>60) mL/min Est GFR (MDRD) Non-Af 62 (>60) mL/min BUN/Creatinine Ratio 23.7 H (10-20) RATIO Glucose 90 (74-106) mg/dL Calcium 9.4 (8.5-10.1) mg/dL Phosphorus 3.4 (2.5-4.9) mg/dL Magnesium 1.3 L (1.6-2.6) mg/dL Iron 60 (50-170) ug/dL TIBC 428 (250-450) ug/dL Iron Saturation 14.0 L (15.0-55.0) % Ferritin 213 (8-252) ng/mL Total Bilirubin (0.20-1.00) mg/dL AST (15-37) U/L ALT (13-56) U/L Alkaline Phosphatase (45-117) U/L Total Protein (6.4-8.2) g/dL Albumin (3.2-5.0) g/dL Globulin (2.2-4.2) g/dL Albumin/Globulin Ratio (0.9-2.4) RATIO Vitamin B12 Methylmalonic Acid Vitamin D 25-Hydroxy ng/mL Folate (3.1-55.4) ng/mL Homocysteine 16.0 H (3.2-10.7) umol/L PTH Intact (18.4-80.1) pg/mL Intrinsic Factor Ab (0.0-1.1) AU/mL 12/19/19 12/19/19 12/16/19 Range/Units 05:45 05:45 06:03 WBC 6.9 (4.4-11.0) K/mm3 RBC 2.92 L (4.2-5.4) M/mm3 Hgb 9.5 L (12.0-15.0) g/dL Hct 28.8 L (37-47) % MCV 98.6 (81-99) fL MCH 32.5 H (27.0-32.0) pg MCHC 33.0 (32-36) g/dL RDW Std Deviation 46.2 H (35.1-43.9) fl RDW Coeff of Tati 12.8 (11.6-14.6) % Plt Count 239 (150-450) K/mm3 MPV 9.7 (6.2-12.0) fl Immature Gran % (Auto) (0.0-0.9) % Neut % (Auto) (47-70) % Lymph % (Auto) (19-41) % Josephine % (Auto) (0-10) % Eos % (Auto) (0-5) % Baso % (Auto) (0-1) % Absolute Neuts (auto) (2.0-7.7) X10^3/uL Absolute Lymphs (auto) (0.83-4.51) X10^3/uL Nucleated RBC % (0-5) % Sodium (136-145) mmol/L Potassium (3.5-5.1) mmol/L Chloride (98-107) mmol/L Carbon Dioxide (21.0-32.0) mmol/L Anion Gap (5-15) BUN (7-18) mg/dL Creatinine (0.55-1.02) mg/dL Estim Creat Clear Calc ml/min Est GFR (MDRD) Af Amer (>60) mL/min Est GFR (MDRD) Non-Af (>60) mL/min BUN/Creatinine Ratio (10-20) RATIO Glucose (74-106) mg/dL Calcium (8.5-10.1) mg/dL Phosphorus (2.5-4.9) mg/dL Magnesium (1.6-2.6) mg/dL Iron (50-170) ug/dL TIBC (250-450) ug/dL Iron Saturation (15.0-55.0) % Ferritin (8-252) ng/mL Total Bilirubin (0.20-1.00) mg/dL AST (15-37) U/L ALT (13-56) U/L Alkaline Phosphatase (45-117) U/L Total Protein (6.4-8.2) g/dL Albumin (3.2-5.0) g/dL Globulin (2.2-4.2) g/dL Albumin/Globulin Ratio (0.9-2.4) RATIO Vitamin B12 295 Methylmalonic Acid Vitamin D 25-Hydroxy 63.4 ng/mL Folate (3.1-55.4) ng/mL Homocysteine (3.2-10.7) umol/L PTH Intact (18.4-80.1) pg/mL Intrinsic Factor Ab 1.2 H (0.0-1.1) AU/mL 12/15/19 12/15/19 12/15/19 Range/Units 05:25 05:25 05:25 WBC (4.4-11.0) K/mm3 RBC (4.2-5.4) M/mm3 Hgb (12.0-15.0) g/dL Hct (37-47) % MCV (81-99) fL MCH (27.0-32.0) pg MCHC (32-36) g/dL RDW Std Deviation (35.1-43.9) fl RDW Coeff of Tati (11.6-14.6) % Plt Count (150-450) K/mm3 MPV (6.2-12.0) fl Immature Gran % (Auto) (0.0-0.9) % Neut % (Auto) (47-70) % Lymph % (Auto) (19-41) % Josephine % (Auto) (0-10) % Eos % (Auto) (0-5) % Baso % (Auto) (0-1) % Absolute Neuts (auto) (2.0-7.7) X10^3/uL Absolute Lymphs (auto) (0.83-4.51) X10^3/uL Nucleated RBC % (0-5) % Sodium 144 (136-145) mmol/L Potassium 3.7 (3.5-5.1) mmol/L Chloride 109 H (98-107) mmol/L Carbon Dioxide 28.0 (21.0-32.0) mmol/L Anion Gap 7 (5-15) BUN 26 H (7-18) mg/dL Creatinine 0.96 (0.55-1.02) mg/dL Estim Creat Clear Calc 34.68 ml/min Est GFR (MDRD) Af Amer 72 (>60) mL/min Est GFR (MDRD) Non-Af 59 L (>60) mL/min BUN/Creatinine Ratio 27.1 H (10-20) RATIO Glucose 100 (74-106) mg/dL Calcium 8.7 (8.5-10.1) mg/dL Phosphorus 2.6 (2.5-4.9) mg/dL Magnesium 1.6 (1.6-2.6) mg/dL Iron (50-170) ug/dL TIBC (250-450) ug/dL Iron Saturation (15.0-55.0) % Ferritin (8-252) ng/mL Total Bilirubin 0.50 (0.20-1.00) mg/dL AST 17 (15-37) U/L ALT 13 (13-56) U/L Alkaline Phosphatase 52 (45-117) U/L Total Protein 6.3 L (6.4-8.2) g/dL Albumin 3.0 L (3.2-5.0) g/dL Globulin 3.3 (2.2-4.2) g/dL Albumin/Globulin Ratio 0.9 (0.9-2.4) RATIO Vitamin B12 Cancelled Methylmalonic Acid Vitamin D 25-Hydroxy ng/mL Folate (3.1-55.4) ng/mL Homocysteine (3.2-10.7) umol/L PTH Intact 58.4 (18.4-80.1) pg/mL Intrinsic Factor Ab (0.0-1.1) AU/mL 12/15/19 Range/Units 05:25 WBC 7.5 (4.4-11.0) K/mm3 RBC 3.06 L (4.2-5.4) M/mm3 Hgb 9.8 L (12.0-15.0) g/dL Hct 30.4 L (37-47) % MCV 99.3 H (81-99) fL MCH 32.0 (27.0-32.0) pg MCHC 32.2 (32-36) g/dL RDW Std Deviation 47.6 H (35.1-43.9) fl RDW Coeff of Tati 13.1 (11.6-14.6) % Plt Count 193 (150-450) K/mm3 MPV 9.9 (6.2-12.0) fl Immature Gran % (Auto) 0.400 (0.0-0.9) % Neut % (Auto) 68.0 (47-70) % Lymph % (Auto) 19.6 (19-41) % Josephine % (Auto) 9.8 (0-10) % Eos % (Auto) 1.9 (0-5) % Baso % (Auto) 0.3 (0-1) % Absolute Neuts (auto) 5.1 (2.0-7.7) X10^3/uL Absolute Lymphs (auto) 1.46 (0.83-4.51) X10^3/uL Nucleated RBC % 0 (0-5) % Sodium (136-145) mmol/L Potassium (3.5-5.1) mmol/L Chloride (98-107) mmol/L Carbon Dioxide (21.0-32.0) mmol/L Anion Gap (5-15) BUN (7-18) mg/dL Creatinine (0.55-1.02) mg/dL Estim Creat Clear Calc ml/min Est GFR (MDRD) Af Amer (>60) mL/min Est GFR (MDRD) Non-Af (>60) mL/min BUN/Creatinine Ratio (10-20) RATIO Glucose (74-106) mg/dL Calcium (8.5-10.1) mg/dL Phosphorus (2.5-4.9) mg/dL Magnesium (1.6-2.6) mg/dL Iron (50-170) ug/dL TIBC (250-450) ug/dL Iron Saturation (15.0-55.0) % Ferritin (8-252) ng/mL Total Bilirubin (0.20-1.00) mg/dL AST (15-37) U/L ALT (13-56) U/L Alkaline Phosphatase (45-117) U/L Total Protein (6.4-8.2) g/dL Albumin (3.2-5.0) g/dL Globulin (2.2-4.2) g/dL Albumin/Globulin Ratio (0.9-2.4) RATIO Vitamin B12 Methylmalonic Acid Vitamin D 25-Hydroxy ng/mL Folate (3.1-55.4) ng/mL Homocysteine (3.2-10.7) umol/L PTH Intact (18.4-80.1) pg/mL Intrinsic Factor Ab (0.0-1.1) AU/mL Microbiology 12/16/19 Unknown Stool Stool Occult Blood (NUNO) - Final Occult Blood Positive none Operations: None Procedures: None Summary of Care Provided: Shanthi Roy is a 79 year old F with a past medical history of hypertension, hypothyroidism, paroxysmal atrial fibrillation, diverticulosis, remote breast cancer with mastectomy in 1974, endometrial cancer with hysterectomy in 2005, gastritis, hyperlipidemia, hepatic cyst, chronic low back pain, mitral regurgitation, GERD with esophagitis, overactive bladder, B12 deficiency, vitamin D deficiency, abdominal bruit and recent fracture of the left clavicle and left superior and inferior pubic rami secondary to a fall from a wall she was trying to sit on who was admitted to the IPRU at [facility] on 12/14/19 with debility due to recent fractures for 3 hours of therapy daily to restore her to her prior level of independence. Prior to the recent fall she was independent with ADL's, walking without an AD and driving. She lives alone and prepares her own meals. Her family had noticed that she had been getting more forgetful over the past year. Her about 1 year ago and he had dementia. She tells me that she took care of him at home and she misses him a lot. She also tells me that she is not sleeping well and has experienced a loss of appetite and unintentional weight loss. She has had trouble getting motivated. She is a golfer and she enjoys gardening. She does not recognize that she has any difficulty with her memory. She told me that she was not depressed and she has her cats at home for company. She has felt isolated at home. She does not know if she has ever had a BMD test. Her PCP is Dr. Ang in [place] and she does not recall the doctor's first name. She was not on medication for osteoporosis. She takes a vitamin D supplement. Lab at admission showed a hemoglobin of 9.8 with a normal white blood cell count and platelet count. The BUN was elevated at 26 and the creatinine was 0.96. Electrolytes were unremarkable with the exception of the magnesium which was borderline low at 1.6. Iron studies showed a normal iron at 60 with a high normal TIBC at 428. Iron saturation was only 14% and this is low. The ferritin was 213 however ferritin is an acute phase reactant and is likely falsely elevated secondary to recent fractures and pain. Vitamin B12 was low normal at 295 and she has been vitamin D deficient in the past. Intrinsic factor antibody was increased at 1.2. Homocystine was increased at 16 but the methylmalonic acid was within normal limits. Folate was within normal limits. The vitamin D level was within normal limits. Hemoglobin at discharge was stable at 9.1. The BUN was high at 36 with a creatinine of 0.9. A Hemoccult stool was obtained during her admission and was positive. She is on an anticoagulant for PAF. Magnesium was 1.6 on the date of discharge. Even though the BUN is elevated out of proportion to the creat she denied lightheadedness at SC and she was not orthostatic. I suspect she is having GI bleeding and this is increasing the BUN. She denied abd pain and also denied N/V and specifically epigastric pain. She was placed on an iron supplement. She was started on Alendronate for suspected osteoporosis. she will continue calcium and vitamin supplementation. She received SC B12 1,000 mg daily X 3 while in rehab. After the B12 was supplemented she repeated herself less often and this was noticed by family as well. Since she has a + IF AB She was given a RX for Cyanocobalamin injectable and her son-in-law will administer 1,000 mg once a month going forward. Kavya was started on Remeron and tolerated this without adverse SE. She was sleeping better prior to SC. Oral intake had improved. She was discharged from rehab on 12/28/2019. Pain was adequately controlled. She will be going to her daughter's home to live until she is able to manage on her own again. C was arranged. I recommended she follow up with a neurologist after she recovers to be evaluated for possible dementia and possibly started on a medication. I am hopeful her memory will improve with treatment of depression. She will continue to be non-weight bearing on the LUE and weight bearing as tolerated on her legs. She is going to follow up with Dr. Dandy Perez for the fractures. She will follow up with Dr. Alexy Napier for routine nail care. Dr. Napier debrided nails 1-10 while she was in the hospital. I advised her to have a DEXA done if she had not had 1 in the past 2 years because I suspect she has significant osteoporosis. Alert, oriented X 3, pleasant and talkative Lungs - CTA with good air exchange. H RRR, no gallop no ankle edema no rashes and no breakdown ABD - soft, NT, NT no guarding with palpation No rashes and no skin breakdown. The ecchymosis around the Left clavicle is resolving. This note was generated with [employer] dictation software. It may contain incorrect words, spelling, and punctuation that were not noted in checking the note before signing. - Physical Exam Vitals/I&O's: Vital Signs Temp Pulse Resp BP Pulse Ox 98.0 F 62 16 114/63 99 12/28/19 07:30 12/28/19 09:16 12/28/19 07:30 12/28/19 07:30 12/28/19 07:30 Oxygen Delivery Method Room Air Weight: 105 lb 2.568 oz Body Mass Index (BMI) 20.4 Orthostatic Vital Signs Start: 12/27/19 13:36 Freq: 0600 Status: Active Protocol: Activity Type Activity Date Activity User E-Sign Co-Sign Detail Recorded Client Recorded Date Recorded By Document 12/28/19 06:00 [facility] [id number] 12/28/19 06:28 [facility] 12/28/19 06:00 Orthostatic Vitals Standing -Blood Pressure (90/60-120/80 mm Hg) 152/76 H -Extremity Use Right Arm -Pulse Rate (60-100 beats/min) 66 Sitting -Blood Pressure (90/60-120/80 mm Hg) 147/68 H -Extremity Use Right Arm -Pulse Rate (60-100 beats/min) 62 Lying -Blood Pressure (90/60-120/80 mm Hg) 104/41 L -Extremity Use Right Arm -Pulse Rate (60-100 beats/min) 61 Intake and Output for Last 24 Hours 12/26/19 12/27/19 12/28/19 23:59 23:59 23:59 Intake Total 840 / 840 1130 / 1130 790 / 790 Output Total 300 / 300 500 / 500 Balance 540 / 540 630 / 630 790 / 790 Laboratory Results 12/28/19 07:13: Sodium 143, Potassium 4.8, Chloride 112 H, Carbon Dioxide 27.0, Anion Gap 4 L, BUN 36 H, Creatinine 0.90, Estim Creat Clear Calc 36.92, Est GFR (MDRD) Af Amer 77, Est GFR (MDRD) Non-Af 64, BUN/Creatinine Ratio 39.8 H, Glucose 82, Calcium 9.0, Magnesium 1.6 12/28/19 07:13: Hgb 9.1 L, Hct 28.9 L Current Medications Acetaminophen (Tylenol) 1,000 mg PO Q8 [facility] Last Admin: 12/28/19 04:59 Dose: 1,000 mg Documented by: Apixaban (Eliquis) 2.5 mg PO BID [facility] Last Admin: 12/28/19 09:15 Dose: 2.5 mg Documented by: Bisacodyl (Dulcolax) 10 mg RECTAL .PRN X 1 PRN PRN Reason: Constipation Calcitonin [place] (Miacalcin Nasal [place]) 1 spray NARES DAILY [facility] Last Admin: 12/28/19 09:20 Dose: 1 spray Documented by: Diclofenac Sodium 0.09 gm/Lidocaine 0.09 gm/ Baclofen 0. 06 gm/ CREAM BASE NO.40 2.76 gm gm TOPICAL TID PRN PRN PRN Reason: Pain Score 1-10/10 Last Admin: 12/28/19 09:18 Dose: 2 gm Documented by: Cyanocobalamin (Vitamin B12) 1,000 mcg PO DAILY@0800 [facility] Last Admin: 12/28/19 09:14 Dose: 1,000 mcg Documented by: Ergocalciferol (Vitamin D) 50,000 unit PO QWEEK [facility] Stop: 03/24/20 08:01 Last Admin: 12/24/19 09:11 Dose: 50,000 unit Documented by: Ferrous Gluconate (Ferrous Gluconate) 324 mg PO DAILY@0800 [facility] Last Admin: 12/28/19 09:14 Dose: 324 mg Documented by: Levothyroxine Sodium (Synthroid) 100 mcg PO DAILY@0600 [facility] Last Admin: 12/28/19 04:59 Dose: 100 mcg Documented by: Lidocaine (Lidoderm Patch) 1 patch TOPICAL DAILY [facility] Last Admin: 12/28/19 09:15 Dose: Not Given Documented by: Magnesium Chloride (Slow-Mag) 71.5 mg PO TID [facility] Last Admin: 12/28/19 04:59 Dose: 71.5 mg Documented by: Magnesium Hydroxide (Milk Of Magnesia) 30 ml PO .PRN X 1 PRN PRN Reason: Constipation Last Admin: 12/14/19 21:57 Dose: 30 ml Documented by: Metoprolol Succinate (Toprol Xl (Beta Gabriella)) 12.5 mg PO DAILY [facility] Last Admin: 12/28/19 09:16 Dose: 12.5 mg Documented by: Mirtazapine (Remeron) 7.5 mg PO 2100 [facility] Last Admin: 12/27/19 21:18 Dose: 7.5 mg Documented by: Multi-Ingredient Cream (Eucerin) 1 applic TOPICAL QHS [facility]; Protocol Last Admin: 12/27/19 21:22 Dose: 1 applicatio Documented by: Nutritional Formula (Lactose Free) (Ensure Enlive) 120 ml PO 4X/DAY [facility] Last Admin: 12/28/19 09:15 Dose: 120 ml Documented by: Oxycodone HCl (Oxyir) 2.5 mg PO Q4H PRN PRN PRN Reason: Pain 1-05/18 Last Admin: 12/28/19 02:07 Dose: 2.5 mg Documented by: Pantoprazole Sodium (Protonix) 40 mg PO DAILY [facility] Last Admin: 12/28/19 09:15 Dose: 40 mg Documented by: Potassium Chloride (K-Dur) 10 meq PO DAILYCM [facility] Last Admin: 12/28/19 09:14 Dose: 10 meq Documented by: Senna/Docusate Sodium (Senokot-S, Marie-Colace) 1 tablet PO BID [facility] Last Admin: 12/28/19 09:16 Dose: Not Given Documented by: Sodium Chloride () 10 - 40 ml IV UD PRN PRN Reason: SALINE FLUSH Last Admin: 12/27/19 08:12 Dose: 10 ml Documented by: Discharge Activity: May Not Drive, May Shower, - - use the [place] Ice area for (Minutes): 15 Weight Bearing Status: Weight bearing as tolerated - on the left leg Keep extremity elevated above heart level: Left Leg Call your doctor if you observe: Fever of 101 or Higher, Numbness or Tingling, Change in Color, Inability to have a bowel movement, Shortness of breath, Dizziness, Fainting spells, Swelling in the ankles, Chest pain, Calf discomfort, Uncontrolled pain Home Medications: Medications to take at Discharge Apixaban [Eliquis] 2.5 mg PO BID 12/14/19 Cholecalciferol (VIT D3) [Vitamin D3] 50,000 units PO QWEEK 12/14/19 Diphenoxylate HCl/Atropine [Lomotil 2.5-0.025 mg Tablet] 1 tab PO DAILY 12/14/19 Levothyroxine [Synthroid] 100 mcg PO DAILY 12/14/19 Metoprolol Succinate [Toprol Xl] 12.5 mg PO DAILY 12/14/19 Omeprazole 40 mg PO DAILY 12/14/19 Potassium Chloride 10 meq PO DAILY 12/14/19 Acetaminophen [Tylenol] 1,000 mg PO Q8 tab 12/28/19 Alendronate Sodium [Fosamax] 70 mg PO QWEEK #4 tab 12/28/19 Cyanocobalamin (Vitamin B-12) [Cyanocobalamin Injection] 1,000 mcg IJ UD 30 Days #1 vial 12/28/19 Ferrous Gluconate 324 mg PO DAILY@0800 #30 tab 12/28/19 Lidocaine 1 patch TRANSDERM. DAILY #30 patch 12/28/19 Magnesium Chloride [Slow-Mag] 71.5 mg PO TID #90 tablet. 12/28/19 Mineral Oil/Petrolatum,White [Eucerin] 1 applic TOPICAL QHS jar 12/28/19 Mirtazapine [Remeron] 7.5 mg PO 2100 #30 tab 12/28/19 Oxycodone [Oxyir] 2.5 mg PO Q4H PRN PRN #42 tab 12/28/19 Following Prescrptions Were Given to Patient: Cyanocobalamin (Vitamin B-12) [Cyanocobalamin Injection] 1,000 mcg IJ UD 30 Days #1 vial Transmission Status: Received by [facility] Ferrous Gluconate 324 mg PO DAILY@0800 #30 tab Transmission Status: Received by [facility] Alendronate Sodium [Fosamax] 70 mg PO QWEEK #4 tab Transmission Status: Received by [facility] Lidocaine 1 patch TRANSDERM. DAILY #30 patch Transmission Status: Received by [facility] Oxycodone [Oxyir] 2.5 mg PO Q4H PRN PRN #42 tab PRN Reason: Pain 1-05/18 Transmission Status: Received by [facility] Mirtazapine [Remeron] 7.5 mg PO 2100 #30 tab Transmission Status: Received by [facility] Magnesium Chloride [Slow-Mag] 71.5 mg PO TID #90 tablet.dr Transmission Status: Received by [facility] Primary Care Physician: ALLIE RODRIGUEZ [Other] Please follow up with your Primary Care Physician in: when you ge back home Please Follow Up With: Dr Hidalgo Shoulder Please Follow Up With: Dr Obrien Hip Please Follow Up With: Dr Ang Please Follow Up With: Dandy Perez MD When: in 2 weeks Please Follow Up With: neurology Patient Instructions: Intrinsic Factor Antibody, Vitamin D, Bone Density Study, What Is Osteoporosis?, Preventing Osteoporosis: Staying Active, Living with Osteoporosis: Preventing Fractures, Living with Osteoporosis: Regular Exercise, Osteoporosis Medications: Bisphosphonates Disposition: Home with Home Health - going home with her daughter to her home in [place] Minutes spent on discharge:: 45 Patient Condition:: Good Medical Necessity - Tobacco Use Smoking Status: Never smoker Tobacco Use: Non-smoker Meaningful Use Info Meaningful Use Diagnoses (Choose all that apply): None applicable Inpatient E&M: 22844 Disch Hosp
[2019-12-28 14:30] VITALS: BP 114/63; PULSE 62; RESP 16; TEMP 36.7; O2SAT 99
--- NOTE | 2019-12-28 14:30 | NURSING ---
Patient and family aware of discharge instructions and verbalized understanding.
== END 2019-12-28 14:30 | disposition home health service (06) | DRG 560 ==
PROVIDERS: Admitting Provider Internal Medicine; Referring Provider Internal Medicine; Visit Provider Internal Medicine
DX: S32.592D Other specified fracture of left pubis, subsequent encounter for fracture with routine healing (principal); I48.20 Chronic atrial fibrillation, unspecified; K52.0 Gastroenteritis and colitis due to radiation; S42.002D Fracture of unspecified part of left clavicle, subsequent encounter for fracture with routine healing; W19.XXXD Unspecified fall, subsequent encounter; E78.5 Hyperlipidemia, unspecified; I48.0 Paroxysmal atrial fibrillation; E03.9 Hypothyroidism, unspecified; G89.29 Other chronic pain; I10 Essential (primary) hypertension; K21.0 Gastro-esophageal reflux disease with esophagitis; D53.9 Nutritional anemia, unspecified; F03.90 Unspecified dementia, unspecified severity, without behavioral disturbance, psychotic disturbance, mood disturbance, and anxiety; N32.81 Overactive bladder; E55.9 Vitamin D deficiency, unspecified; E53.8 Deficiency of other specified B group vitamins; F32.9 Major depressive disorder, single episode, unspecified; Z92.3 Personal history of irradiation; Y84.2 Radiological procedure and radiotherapy as the cause of abnormal reaction of the patient, or of later complication, without mention of misadventure at the time of the procedure; B35.1 Tinea unguium; L84 Corns and callosities; M20.10 Hallux valgus (acquired), unspecified foot
CPT/HCPCS: 36415; 80048; 80053; 82274; 82306; 82607; 82728; 82746; 83090; 83540; 83550; 83735; 83921; 83970; 84100; 85014; 85018; 85025; 85027; 86340; 92507; 92523; 97110; 97116; 97162; 97166; 97530; 97535; 97802; 99251; J1756; J7040; A4216; G0463; J3420